=== PATIENT | female | born 1940 | race Asian ===

== ENCOUNTER 2017-12-25 06:39 | Inpatient (IN) | payer MEDICARE, MEDICAID ==
[~2017-12-25] VITALS: Ht 162.6 cm; Wt 42.2 kg
[2017-12-25 06:39] VITALS: BP 145/80
[2017-12-25] MEDS ORDERED: Bacitracin Oint UD TOPIC ONE (06:45)
[2017-12-25] MEDS ORDERED: Lidocaine 1% 10mg/ml/Epi 0.005mg/ml 30ml vial INJ ONE (06:45)
[2017-12-25] MEDS ORDERED: Sodium Chloride 500ML 550 ML IV SCH (06:45)
[2017-12-25] MEDS ORDERED: Tetanus/Diptheria/Pertussis Vaccine 0.5ml Syr IM ONE (06:45)
[2017-12-25] MEDS ORDERED: Acetaminophen 500mg (ES) tab PO ONE (06:45)
--- NOTE | 2017-12-25 07:06 | Emergency Room Report ---
History of Present Illness General Chief Complaint: Multiple Trauma/Fall Source: Patient, Family Member, EMS Present Illness HPI Patient fell this morning. It's uncertain whether she had a syncopal episode as there is a language barrier. She has a laceration over the right eyebrow. It's unknown what medications she is on at this time. A collar runner will be obtained. Through RN collar runner the reports the patient's had a year of increasing weakness. This morning she was trying to move a stand going to the bathroom and because of the weakness fell. She remembers falling. She's had some chronic bowel issue. It's undiagnosed. They deny vomiting or diarrhea. The patient's treated for hypertension and hypercholesterolemia. No apparent diabetes. Unknown when last tetanus shot was. Allergies: Coded Allergies: No Known Allergies (Unverified , 12/25/17) Patient History Past Medical History: see triage record Social History: Denies: smoking, alcohol use, drug use Social History Narrative Last Menstrual Period: n/a Reviewed Nursing Documentation: PMH: Agreed; PSxH: Agreed Nursing Documentation-PMH Past Medical History: No History, Except For Hx Hypertension: Yes Review of Systems All Other Systems: negative except mentioned in HPI Physical Exam Vital Signs Date Time Temp Pulse Resp B/P (MAP) Pulse Ox O2 Delivery O2 Flow Rate FiO2 12/25/17 06:34 97.7 73 18 145/80 98 Room Air Sp02 EP Interpretation: reviewed, normal General Appearance: alert, thin, other - eyes closed, Chronically Ill Head: normocephalic Eyes: right eye other - SC ecchymoses, irregular eliptical pupils bilat ENT: moist mucus membranes Neck: supple, no bony tend Respiratory: lungs clear, normal breath sounds Cardiovascular #1: regular rate, rhythm Cardiovascular #2: 2+ radial (R) Gastrointestinal: normal inspection, normal bowel sounds, non tender, no mass, non-distended Musculoskeletal: back normal Neurologic: alert, DTRs symmetric, sensory intact, speech normal, no Babinski, motor weakness - diffuse - foot flexors 5/5, moves UE without difficulty, oriented - X2 Psychiatric: depressed affect Skin: warm/dry, laceration - R eyebrow Procedures Laceration/Wound Repair Laceration/Wound Repair : Consent: Verbal Wound Location: face - eye lid Wound's Depth, Shape: superficial Wound Length (cm): 1 Wound Explored: clean Betadine Prep?: Yes Anesthesia: Lidocaine w/ Epi Wound Debrided: none Wound Repaired With: sutures Suture Size/Type: 6:0, proline Layer Closure?: No Sterile Dressing Applied?: Yes Patient Tolerated: Well Complications: None Medical Decision Making Diagnostic Impression: Primary Impression: NSTEMI (non-ST elevated myocardial infarction) Additional Impression: Head trauma Qualified Codes: S09.90XA - Unspecified injury of head, initial encounter ER Course Patient with fall with laceration above the right eyebrow. Differential includes syncope, bleed, contusion, laceration amongst others. The patient will be evaluated with EKG, CT the head and labs. She'll be given tetanus vaccination and requires suture repair. In addition she will be given Tylenol. She has generalized weakness which needs to be evaluated. EKG with sinus rhythm left atrial enlargement normal intervals and nonspecific ST-T wave changes. Lab called with + troponin. Aspirin given. WBC with low WBC. CMP with slightly low potassium. Laceration sutured. Tolerated well. Discussed findings and need for admission. Admit telemetry Dr. Paredes. Labs Test 12/25/17 07:15 12/25/17 10:40 12/25/17 15:35 12/25/17 15:55 White Blood Count 3.9 K/UL (4.8-10.8) Red Blood Count 4.02 M/UL (4.20-5.40) Hemoglobin 13.1 G/DL (12.0-16.0) Hematocrit 37.9 % (37.0-47.0) Mean Corpuscular Volume 94 FL (80-99) Mean Corpuscular Hemoglobin 32.5 PG (27.0-31.0) Mean Corpuscular Hemoglobin Concent 34.6 G/DL (32.0-36.0) Red Cell Distribution Width 11.4 % (11.6-14.8) Platelet Count 184 K/UL (150-450) Mean Platelet Volume 7.9 FL (6.5-10.1) Neutrophils (%) (Auto) 46.3 % (45.0-75.0) Lymphocytes (%) (Auto) 41.9 % (20.0-45.0) Monocytes (%) (Auto) 7.8 % (1.0-10.0) Eosinophils (%) (Auto) 2.9 % (0.0-3.0) Basophils (%) (Auto) 1.1 % (0.0-2.0) Prothrombin Time 9.9 SEC (9.30-11.50) Prothromb Time International Ratio 0.9 (0.9-1.1) Activated Partial Thromboplast Time 26 SEC (23-33) Sodium Level 144 MMOL/L (136-145) Potassium Level 3.2 MMOL/L (3.5-5.1) Chloride Level 108 MMOL/L (98-107) Carbon Dioxide Level 31 MMOL/L (21-32) Anion Gap 5 mmol/L (5-15) Blood Urea Nitrogen 13 mg/dL (7-18) Creatinine 0.6 MG/DL (0.55-1.30) Estimat Glomerular Filtration Rate mL/min (>60) Glucose Level 96 MG/DL (74-106) Calcium Level 8.9 MG/DL (8.5-10.1) Total Bilirubin 0.4 MG/DL (0.2-1.0) Aspartate Amino Transf (AST/SGOT) 22 U/L (15-37) Alanine Aminotransferase (ALT/SGPT) 23 U/L (12-78) Alkaline Phosphatase 81 U/L (46-116) Troponin I 0.127 ng/mL (0.000-0.056) 0.151 ng/mL (0.000-0.056) 0.150 ng/mL (0.000-0.056) Total Protein 7.5 G/DL (6.4-8.2) Albumin 3.7 G/DL (3.4-5.0) Globulin 3.8 g/dL Albumin/Globulin Ratio 1.0 (1.0-2.7) HIV (1&2) Antibody Rapid Negative (NEGATIVE) Hepatitis A IgM Antibody Negative (Negative) Hepatitis B Surface Antigen Negative (Negative) Hepatitis B Core IgM Antibody Negative (Negative) Hepatitis C Antibody <0.1 s/co ratio Carcinoembryonic Antigen 4.1 ng/mL (0.0-4.7) Test 12/25/17 19:30 12/25/17 21:46 12/25/17 22:00 12/26/17 04:46 Urine Color Pale yellow Urine Appearance Clear Urine pH 8 (4.5-8.0) Urine Specific [place] 1.010 (1.005-1.035) Urine Protein Negative (NEGATIVE) Urine Glucose (UA) Negative (NEGATIVE) Urine Ketones Negative (NEGATIVE) Urine Blood Negative (NEGATIVE) Urine Nitrite Negative (NEGATIVE) Urine Bilirubin Negative (NEGATIVE) Urine Urobilinogen Normal MG/DL (0.0-1.0) Urine Leukocyte Esterase Negative (NEGATIVE) Urine RBC 0-2 /HPF (0 - 2) Urine WBC 0-2 /HPF (0 - 2) Urine Squamous Epithelial Cells Occasional /LPF Urine Bacteria Few /HPF (NONE) Troponin I 0.142 ng/mL (0.000-0.056) 0.144 ng/mL (0.000-0.056) Erythrocyte Sedimentation Rate 20 MM/HR (0-30) Hemoglobin A1c > 16.0 % (4.3-6.0) Vitamin B12 Level 971 PG/ML (193-986) Folate 34.4 NG/ML (8.6-58.9) Thyroid Stimulating Hormone (TSH) 1.497 uiU/mL (0.358-3.740) White Blood Count 5.5 K/UL (4.8-10.8) Red Blood Count 4.07 M/UL (4.20-5.40) Hemoglobin 12.8 G/DL (12.0-16.0) Hematocrit 38.2 % (37.0-47.0) Mean Corpuscular Volume 94 FL (80-99) Mean Corpuscular Hemoglobin 31.4 PG (27.0-31.0) Mean Corpuscular Hemoglobin Concent 33.5 G/DL (32.0-36.0) Red Cell Distribution Width 11.1 % (11.6-14.8) Platelet Count 193 K/UL (150-450) Mean Platelet Volume 7.3 FL (6.5-10.1) Neutrophils (%) (Auto) 59.7 % (45.0-75.0) Lymphocytes (%) (Auto) 30.4 % (20.0-45.0) Monocytes (%) (Auto) 7.1 % (1.0-10.0) Eosinophils (%) (Auto) 1.8 % (0.0-3.0) Basophils (%) (Auto) 1.1 % (0.0-2.0) Sodium Level 144 MMOL/L (136-145) Potassium Level 3.8 MMOL/L (3.5-5.1) Chloride Level 110 MMOL/L (98-107) Carbon Dioxide Level 29 MMOL/L (21-32) Anion Gap 5 mmol/L (5-15) Blood Urea Nitrogen 18 mg/dL (7-18) Creatinine 0.6 MG/DL (0.55-1.30) Estimat Glomerular Filtration Rate mL/min (>60) Glucose Level 87 MG/DL (74-106) Calcium Level 9.1 MG/DL (8.5-10.1) Magnesium Level 2.2 MG/DL (1.8-2.4) EKG Diagnostic Results Rate: normal Rhythm: NSR ST Segments: no acute changes - Left atrial enlargement Rhythm Strip Diag. Results EP Interpretation: yes Rhythm: NSR, no PVC's, no ectopy CT/MRI/US Diagnostic Results CT/MRI/US Diagnostic Results : Imaging Test Ordered: head Impression atrophy Status: improved Disposition: ADMITTED INPATIENT Condition: Serious Owen Burgess MD Dec 25, 2017 07:06
[2017-12-25 07:44] LABS: BASOPHILS % (AUTO) 1.1 % (0.0-2.0); EOSINOPHILS % (AUTO) 2.9 % (0.0-3.0); HEMATOCRIT 37.9 % (37.0-47.0); HEMOGLOBIN 13.1 G/DL (12.0-16.0); LYMPHOCYTES % (AUTO) 41.9 % (20.0-45.0); MEAN CORPUSCULAR VOLUME 94 FL (80-99); MONOCYTES % (AUTO) 7.8 % (1.0-10.0); NEUTROPHILS % (AUTO) 46.3 % (45.0-75.0); PLATELET COUNT 184 K/UL (150-450); RED BLOOD COUNT 4.02 M/UL (4.20-5.40); RED CELL DISTRIBUTION WIDTH 11.4 % (11.6-14.8); WHITE BLOOD COUNT 3.9 K/UL (4.8-10.8)
[2017-12-25 07:48] LABS: ANION GAP 5 mmol/L (5-15); BLOOD UREA NITROGEN 13 mg/dL (7-18); CALCIUM 8.9 MG/DL (8.5-10.1); CARBON DIOXIDE 31 MMOL/L (21-32); CHLORIDE 108 MMOL/L (98-107); CREATININE 0.6 MG/DL (0.55-1.30); POTASSIUM 3.2 MMOL/L (3.5-5.1); SODIUM 144 MMOL/L (136-145)
[2017-12-25 07:50] LABS: INR 0.9 (0.9-1.1)
[2017-12-25 07:53] LABS: ALANINE AMINOTRANSFERASE 23 U/L (12-78); ALBUMIN 3.7 G/DL (3.4-5.0); ALKALINE PHOSPHATASE 81 U/L (46-116); ASPARTATE AMINO TRANSFERASE 22 U/L (15-37); BILIRUBIN,TOTAL 0.4 MG/DL (0.2-1.0)
[2017-12-25 08:34] VITALS: BP 148/86
--- NOTE | 2017-12-25 08:45 | Diagnostic Imaging Report ---
Indication: Headache and trauma Technique: Contiguous 5 mm thick transaxial imaging of the head obtained in a Siemens Sensation [address] scanner. Soft tissue and bone windows generated. Automatic Exposure Control was utilized. Total Dose length Product (DLP): 1354.[address] Dose Index Volume (CTDIvol): 70.38 mGy Comparison: none Findings: There is moderate prominence of the ventricles, basal cisterns, and cerebral sulci consistent with atrophy. Moderate, nonspecific, white matter hypoattenuation is noted throughout the brain consistent with chronic small vessel disease. There is no midline shift, edema, acute hemorrhage, mass effect, or abnormal extra-axial fluid collections. Bones and extra osseous soft tissues are unremarkable. Impression: No acute intracranial bleed, mass effect or edema. Moderate atrophy of the brain. Evidence of chronic small vessel disease involving white matter tracts. The CT scanner at [facility] is accredited by the [employer] and the scans are performed using dose optimization techniques as appropriate to a performed exam including Automatic Exposure control.
[2017-12-25] MEDS ORDERED: AMLODIPINE-BEN1 EAC4 ORAL (09:07)
[2017-12-25] MEDS ORDERED: SIMVASTATIN20 MG ORAL (09:07)
[2017-12-25] MEDS ORDERED: MEGESTROL ACETA40 MG PO (09:07)
[2017-12-25] MEDS ORDERED: PANTOPRAZOLE SO40 MG ORAL (09:07)
[2017-12-25] MEDS ORDERED: XANAX0.5 MG ORAL (09:07)
[2017-12-25] MEDS ORDERED: Morphine Sulfate 2mg/ml Inj IVP PRN (10:15)
[2017-12-25] MEDS ORDERED: Acetaminophen 650 MG SUPP RECTAL PRN ×2 (10:15)
--- NOTE | 2017-12-25 10:27 | History and Physical ---
History of Present Illness General Date patient seen: Dec 25, 2017 Time patient seen: 09:30 Reason for Hospitalization: Multiple Trauma/Fall Present Illness HPI History obtained with stations superintendent through patient, EMR and patient's at bedside. 77 yo Yoruba speaking PMH of CVA (30 years ago no residual deficits) presents for a fall this am as she got up to use the rest room. Patient admits that she does not usually have much apatite and does not eat adequately because she has a "digestion problem". She states that she feels weak but denies any particular inciting events and states she is able to ambulate on her her own without use of a walker. Patient admits that she felt lightheaded prior to the fall. She denies any chest pain, dizziness, or neurological deficits prior to the fall. Patient currently denies any chest pain, nausea, vomiting, dizziness, light headedness, abd pain, fevers, chills, dysuria. Allergies: Coded Allergies: No Known Allergies (Unverified , 12/25/17) Medication History Scheduled Alprazolam* (Xanax*), 0.5 MG ORAL PRN, (Reported) Amlodipine Besylate/Benazepril 5-20 Mg* (Amlodipine-Benazepril 5-20 Mg*), 1 CAP ORAL DAILY, (Reported) Megestrol Acetate (Megestrol Acetate), 40 MG PO BID, (Reported) Pantoprazole* (Pantoprazole*), 40 MG ORAL DAILY, (Reported) Simvastatin (Zocor), 20 MG ORAL BEDTIME, (Reported) Patient History History Provided By: Patient, Family Member, EMS Healthcare decision maker Resuscitation status Advanced Directive on File Past Medical/Surgical History Past Medical/Surgical History: (1) CVA (cerebral vascular accident) (2) H/O: hysterectomy Review of Systems All Other Systems: negative except mentioned in HPI ROS Narrative aside from HPI all other systems are negative including more than 12 systems Physical Exam General Appearance: WD/WN, no apparent distress, thin, other - patient has laceration over the right eye and very thin Lines, tubes and drains: peripheral - right arm HEENT: anicteric, other - left pupil is 3 mm, round and reactive, right pupil is sluggish, right eye is swollen with laceration over the right eyebrow, no acitve bleeding Neck: non-tender, normal alignment, supple, normal inspection Respiratory/Chest: chest wall non-tender, lungs clear, normal breath sounds, no respiratory distress, no accessory muscle use Cardiovascular/Chest: normal peripheral pulses, normal rate, regular rhythm, regularly irregular, no gallop/murmur, no JVD Abdomen: normal bowel sounds, non tender, soft, no organomegaly, no mass Extremities: normal range of motion, non-tender, normal inspection, no calf tenderness, no edema, no cyanosis, other - 4/5 muscle strength in UE BL and LE BL Skin Exam: normal pigmentation, warm/dry, cyanotic 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, alert, oriented x 3, responsive, normal mood/affect, no Babinski, no pronator, motor weakness - generally weak with 4/5 muscle strength UE and LE BL, DTR's are 2+ BL brachioradialis and dtr's, sensation is grossly intact, no clonus, no tremors, CHERRY smooth Musculoskeletal: atrophy Last 24 Hour Vital Signs Date Time Temp Pulse Resp B/P (MAP) Pulse Ox O2 Delivery O2 Flow Rate FiO2 12/25/17 08:34 98.0 65 16 148/86 100 Room Air 12/25/17 06:44 73 18 Room Air 12/25/17 06:39 97.7 65 18 145/80 98 Room Air 12/25/17 06:34 97.7 73 18 145/80 98 Room Air Laboratory Tests Test 12/25/17 07:15 White Blood Count 3.9 K/UL (4.8-10.8) L Red Blood Count 4.02 M/UL (4.20-5.40) L Hemoglobin 13.1 G/DL (12.0-16.0) Hematocrit 37.9 % (37.0-47.0) Mean Corpuscular Volume 94 FL (80-99) Mean Corpuscular Hemoglobin 32.5 PG (27.0-31.0) H Mean Corpuscular Hemoglobin Concent 34.6 G/DL (32.0-36.0) Red Cell Distribution Width 11.4 % (11.6-14.8) L Platelet Count 184 K/UL (150-450) Mean Platelet Volume 7.9 FL (6.5-10.1) Neutrophils (%) (Auto) 46.3 % (45.0-75.0) Lymphocytes (%) (Auto) 41.9 % (20.0-45.0) Monocytes (%) (Auto) 7.8 % (1.0-10.0) Eosinophils (%) (Auto) 2.9 % (0.0-3.0) Basophils (%) (Auto) 1.1 % (0.0-2.0) Prothrombin Time 9.9 SEC (9.30-11.50) Prothromb Time International Ratio 0.9 (0.9-1.1) Activated Partial Thromboplast Time 26 SEC (23-33) Sodium Level 144 MMOL/L (136-145) Potassium Level 3.2 MMOL/L (3.5-5.1) L Chloride Level 108 MMOL/L (98-107) H Carbon Dioxide Level 31 MMOL/L (21-32) Anion Gap 5 mmol/L (5-15) Blood Urea Nitrogen 13 mg/dL (7-18) Creatinine 0.6 MG/DL (0.55-1.30) Estimat Glomerular Filtration Rate mL/min (>60) Glucose Level 96 MG/DL (74-106) Calcium Level 8.9 MG/DL (8.5-10.1) Total Bilirubin 0.4 MG/DL (0.2-1.0) Aspartate Amino Transf (AST/SGOT) 22 U/L (15-37) Alanine Aminotransferase (ALT/SGPT) 23 U/L (12-78) Alkaline Phosphatase 81 U/L (46-116) Troponin I 0.127 ng/mL (0.000-0.056) Total Protein 7.5 G/DL (6.4-8.2) Albumin 3.7 G/DL (3.4-5.0) Globulin 3.8 g/dL Albumin/Globulin Ratio 1.0 (1.0-2.7) Height (Feet): 5 Height (Inches): 5.00 Weight (Pounds): 110 Medications Current Medications Medications (Trade) Dose Ordered Sig/Jie Route PRN Reason Start Time Stop Time Status Last Admin Dose Admin Acetaminophen (Tylenol) 650 mg Q4H PRN RECTAL Mild Pain (Pain Scale 1-3) 12/25/17 10:15 01/24/18 10:14 UNV Acetaminophen (Tylenol) 650 mg Q4H PRN RECTAL fever 12/25/17 10:15 01/24/18 10:14 UNV Aspirin (ASA) 81 mg DAILY ORAL 12/26/17 09:00 01/25/18 08:59 UNV Atorvastatin Calcium (Lipitor) 40 mg BEDTIME ORAL 12/25/17 21:00 01/24/18 20:59 UNV Dextrose (Dextrose 50%) 25 ml Q30M PRN IV Hypoglycemia 12/25/17 10:15 01/24/18 10:14 UNV Dextrose (Dextrose 50%) 50 ml Q30M PRN IV Hypoglycemia 12/25/17 10:15 01/24/18 10:14 UNV Docusate Sodium (Colace) 200 mg EVERY 12 HOURS ORAL 12/25/17 10:15 01/24/18 10:14 UNV Heparin Sodium (Porcine) (Heparin 5000 units/ml) 5,000 units EVERY 12 HOURS SUBQ 12/25/17 21:00 01/24/18 20:59 UNV Lisinopril (Zestril) 2.5 mg DAILY ORAL 12/25/17 10:15 01/24/18 10:14 UNV Metoprolol Tartrate (Lopressor) 25 mg EVERY 12 HOURS ORAL 12/25/17 21:00 01/24/18 20:59 UNV Morphine Sulfate (Morphine Sulfate) 2 mg Q6H PRN IVP Moderate Pain (Pain Scale 4-6) 12/25/17 10:15 01/01/18 10:14 UNV Ondansetron HCl (Zofran) 4 mg Q6H PRN IVP Nausea & Vomiting 12/25/17 10:15 01/24/18 10:14 UNV Pantoprazole (Protonix) 40 mg DAILY ORAL 12/26/17 09:00 01/25/18 08:59 UNV Sodium Chloride 550 ml @ 150 mls/hr Q3H40M IV 12/25/17 06:45 01/24/18 06:44 12/25/17 07:26 Assessment/Plan Problem List: (1) Fall ICD Codes: W19.XXXA - Unspecified fall, initial encounter SNOMED: 3971228, 133986958 (2) NSTEMI (non-ST elevated myocardial infarction) ICD Codes: I21.4 - Non-ST elevation (NSTEMI) myocardial infarction SNOMED: 743317747 (3) Head trauma ICD Codes: S09.90XA - Unspecified injury of head, initial encounter SNOMED: 88109078 (4) Malnutrition ICD Codes: E46 - Unspecified protein-calorie malnutrition SNOMED: 48379147 (5) Hypoalbuminemia ICD Codes: E88.09 - Other disorders of plasma-protein metabolism, not elsewhere classified SNOMED: 216974439 Assessment/Plan Mechanical Fall, r/o arrhythmia/heart block and acs - EKG WNL, no ST segment changes - fall precautions - admit to tele under obs - CT head negative - contibnue troponins and EKG [id number] - card and neuro consulted - echo Elevated troponin, r/o NSTEMI -EKG WNL - continue to monitor on telel - EKG and troponins q6h - cardiology consult - BB, kj, asa, statin Head Trauma - wound care Malnutrition and Hypoalbuminemia and weakness - consult nutrition - ensure TID - soft diet for dentures - PT OT Code Status - FULL CODE DVT proph - heparin, will monitor eye laceration closely GI prophylaxis - protonix H/O CVA H/O hysterectomy with benign tumor Dispo - home with vs SNF pending PT Addie Galeano DO Dec 25, 2017 10:27
--- NOTE | 2017-12-25 11:28 | Consultation ---
History of Present Illness General Chief Complaint: Multiple Trauma/Fall Present Illness HPI 77-year-old Japanese lady with history of hypertension, hyperlipidemia, and history of prior stroke with no significant residual, got up from restroom and she had a fall. the pt has been depressed and withdrawn for the past year. per pts the pts children are all adults and work. the pt has been feeling lonely not eating well nor sleeping well per pts . the pt admitted that she has been depressed but was min verbal. no si. Allergies: Coded Allergies: No Known Allergies (Unverified , 12/25/17) Medication History Scheduled Alprazolam* (Xanax*), 0.5 MG ORAL PRN, (Reported) Amlodipine Besylate/Benazepril 5-20 Mg* (Amlodipine-Benazepril 5-20 Mg*), 1 CAP ORAL DAILY, (Reported) Megestrol Acetate (Megestrol Acetate), 40 MG PO BID, (Reported) Pantoprazole* (Pantoprazole*), 40 MG ORAL DAILY, (Reported) Simvastatin (Zocor), 20 MG ORAL BEDTIME, (Reported) Patient History Limited by: medical condition History Provided By: Patient, Medical Record, PMD Healthcare decision maker Resuscitation status Advanced Directive on File Past Medical/Surgical History Past Medical/Surgical History: (1) Head trauma (2) NSTEMI (non-ST elevated myocardial infarction) (3) CVA (cerebral vascular accident) (4) Malnutrition (5) Hypoalbuminemia (6) Fall Review of Systems Psychiatric: Reports: anxiety, depressed feelings, emotional problems Physical Exam General Appearance: no apparent distress, alert, cachetic Neurologic: oriented x 3, responsive, depressed affect Last 24 Hour Vital Signs Date Time Temp Pulse Resp B/P (MAP) Pulse Ox O2 Delivery O2 Flow Rate FiO2 12/25/17 10:00 66 12/25/17 08:34 98.0 65 16 148/86 100 Room Air 12/25/17 06:44 73 18 Room Air 12/25/17 06:39 97.7 65 18 145/80 98 Room Air 12/25/17 06:34 97.7 73 18 145/80 98 Room Air Laboratory Tests Test 12/25/17 07:15 12/25/17 10:40 White Blood Count 3.9 K/UL (4.8-10.8) L Red Blood Count 4.02 M/UL (4.20-5.40) L Hemoglobin 13.1 G/DL (12.0-16.0) Hematocrit 37.9 % (37.0-47.0) Mean Corpuscular Volume 94 FL (80-99) Mean Corpuscular Hemoglobin 32.5 PG (27.0-31.0) H Mean Corpuscular Hemoglobin Concent 34.6 G/DL (32.0-36.0) Red Cell Distribution Width 11.4 % (11.6-14.8) L Platelet Count 184 K/UL (150-450) Mean Platelet Volume 7.9 FL (6.5-10.1) Neutrophils (%) (Auto) 46.3 % (45.0-75.0) Lymphocytes (%) (Auto) 41.9 % (20.0-45.0) Monocytes (%) (Auto) 7.8 % (1.0-10.0) Eosinophils (%) (Auto) 2.9 % (0.0-3.0) Basophils (%) (Auto) 1.1 % (0.0-2.0) Prothrombin Time 9.9 SEC (9.30-11.50) Prothromb Time International Ratio 0.9 (0.9-1.1) Activated Partial Thromboplast Time 26 SEC (23-33) Sodium Level 144 MMOL/L (136-145) Potassium Level 3.2 MMOL/L (3.5-5.1) L Chloride Level 108 MMOL/L (98-107) H Carbon Dioxide Level 31 MMOL/L (21-32) Anion Gap 5 mmol/L (5-15) Blood Urea Nitrogen 13 mg/dL (7-18) Creatinine 0.6 MG/DL (0.55-1.30) Estimat Glomerular Filtration Rate mL/min (>60) Glucose Level 96 MG/DL (74-106) Calcium Level 8.9 MG/DL (8.5-10.1) Total Bilirubin 0.4 MG/DL (0.2-1.0) Aspartate Amino Transf (AST/SGOT) 22 U/L (15-37) Alanine Aminotransferase (ALT/SGPT) 23 U/L (12-78) Alkaline Phosphatase 81 U/L (46-116) Troponin I 0.127 ng/mL (0.000-0.056) 0.151 ng/mL (0.000-0.056) Total Protein 7.5 G/DL (6.4-8.2) Albumin 3.7 G/DL (3.4-5.0) Globulin 3.8 g/dL Albumin/Globulin Ratio 1.0 (1.0-2.7) Height (Feet): 5 Height (Inches): 5.00 Weight (Pounds): 110 Medications Current Medications Medications (Trade) Dose Ordered Sig/Jie Route PRN Reason Start Time Stop Time Status Last Admin Dose Admin Acetaminophen (Tylenol) 650 mg Q4H PRN RECTAL Mild Pain (Pain Scale 1-3) 12/25/17 10:15 01/24/18 10:14 Acetaminophen (Tylenol) 650 mg Q4H PRN RECTAL fever 12/25/17 10:15 01/24/18 10:14 Aspirin (ASA) 81 mg DAILY ORAL 12/26/17 09:00 01/25/18 08:59 Atorvastatin Calcium (Lipitor) 40 mg BEDTIME ORAL 12/25/17 21:00 01/24/18 20:59 Dextrose (Dextrose 50%) 25 ml Q30M PRN IV Hypoglycemia 12/25/17 10:15 01/24/18 10:14 Dextrose (Dextrose 50%) 50 ml Q30M PRN IV Hypoglycemia 12/25/17 10:15 01/24/18 10:14 Docusate Sodium (Colace) 200 mg EVERY 12 HOURS ORAL 12/25/17 10:15 01/24/18 10:14 Heparin Sodium (Porcine) (Heparin 5000 units/ml) 5,000 units EVERY 12 HOURS SUBQ 12/25/17 21:00 01/24/18 20:59 Lisinopril (Zestril) 2.5 mg DAILY ORAL 12/25/17 10:15 01/24/18 10:14 Metoprolol Tartrate (Lopressor) 25 mg EVERY 12 HOURS ORAL 12/25/17 21:00 01/24/18 20:59 Morphine Sulfate (Morphine Sulfate) 2 mg Q6H PRN IVP Moderate Pain (Pain Scale 4-6) 12/25/17 10:15 01/01/18 10:14 Ondansetron HCl (Zofran) 4 mg Q6H PRN IVP Nausea & Vomiting 12/25/17 10:15 01/24/18 10:14 Pantoprazole (Protonix) 40 mg DAILY ORAL 12/26/17 09:00 01/25/18 08:59 Sodium Chloride 550 ml @ 150 mls/hr Q3H40M IV 12/25/17 06:45 01/24/18 06:44 12/25/17 07:26 Assessment/Plan Problem List: (1) Major depressive disorder ICD Codes: F32.9 - Major depressive disorder, single episode, unspecified SNOMED: 546721679 (2) Anxiety ICD Codes: F41.9 - Anxiety disorder, unspecified SNOMED: 67556294 Status: stable Assessment/Plan remeron 7.5 mg qhs lexapro 10mg qam provided ro/st the was given the script Mariana Peng MD Dec 25, 2017 11:28
--- NOTE | 2017-12-25 11:51 | Cardiac Electrophysiology PN ---
Subjective Subjective [id number] Objective Last 24 Hour Vital Signs Date Time Temp Pulse Resp B/P (MAP) Pulse Ox O2 Delivery O2 Flow Rate FiO2 12/25/17 10:00 66 12/25/17 08:34 98.0 65 16 148/86 100 Room Air 12/25/17 06:44 73 18 Room Air 12/25/17 06:39 97.7 65 18 145/80 98 Room Air 12/25/17 06:34 97.7 73 18 145/80 98 Room Air Laboratory Tests Test 12/25/17 07:15 12/25/17 10:40 White Blood Count 3.9 K/UL (4.8-10.8) L Red Blood Count 4.02 M/UL (4.20-5.40) L Hemoglobin 13.1 G/DL (12.0-16.0) Hematocrit 37.9 % (37.0-47.0) Mean Corpuscular Volume 94 FL (80-99) Mean Corpuscular Hemoglobin 32.5 PG (27.0-31.0) H Mean Corpuscular Hemoglobin Concent 34.6 G/DL (32.0-36.0) Red Cell Distribution Width 11.4 % (11.6-14.8) L Platelet Count 184 K/UL (150-450) Mean Platelet Volume 7.9 FL (6.5-10.1) Neutrophils (%) (Auto) 46.3 % (45.0-75.0) Lymphocytes (%) (Auto) 41.9 % (20.0-45.0) Monocytes (%) (Auto) 7.8 % (1.0-10.0) Eosinophils (%) (Auto) 2.9 % (0.0-3.0) Basophils (%) (Auto) 1.1 % (0.0-2.0) Prothrombin Time 9.9 SEC (9.30-11.50) Prothromb Time International Ratio 0.9 (0.9-1.1) Activated Partial Thromboplast Time 26 SEC (23-33) Sodium Level 144 MMOL/L (136-145) Potassium Level 3.2 MMOL/L (3.5-5.1) L Chloride Level 108 MMOL/L (98-107) H Carbon Dioxide Level 31 MMOL/L (21-32) Anion Gap 5 mmol/L (5-15) Blood Urea Nitrogen 13 mg/dL (7-18) Creatinine 0.6 MG/DL (0.55-1.30) Estimat Glomerular Filtration Rate mL/min (>60) Glucose Level 96 MG/DL (74-106) Calcium Level 8.9 MG/DL (8.5-10.1) Total Bilirubin 0.4 MG/DL (0.2-1.0) Aspartate Amino Transf (AST/SGOT) 22 U/L (15-37) Alanine Aminotransferase (ALT/SGPT) 23 U/L (12-78) Alkaline Phosphatase 81 U/L (46-116) Troponin I 0.127 ng/mL (0.000-0.056) 0.151 ng/mL (0.000-0.056) Total Protein 7.5 G/DL (6.4-8.2) Albumin 3.7 G/DL (3.4-5.0) Globulin 3.8 g/dL Albumin/Globulin Ratio 1.0 (1.0-2.7) Fady Ramsey MD Dec 25, 2017 11:51
[2017-12-25] MEDS: Docusate 100mg cap ORAL SCH ×2 (11:53→20:10)
[2017-12-25] MEDS: Lisinopril 2.5mg tab ORAL SCH (11:53)
[2017-12-25 12:00] VITALS: BP 143/81
--- NOTE | 2017-12-25 12:03 | Consultation ---
Consult Note Consult Note Hematology Consult Note DOS: 12/25/17 REQ MD: Vignesh Godfrey RFC: FTT and Leukopenia HPI 77 yo Lithuanian speaking PMH of CVA (30 years ago no residual deficits) presents for a fall this am as she got up to use the rest room. Patient admits that she does not usually have much apatite and does not eat adequately because she has a "digestion problem". She states that she feels weak but denies any particular inciting events and states she is able to ambulate on her her own without use of a walker. Patient admits that she felt lightheaded prior to the fall. She denies any chest pain, dizziness, or neurological deficits prior to the fall. Patient currently denies any chest pain, nausea, vomiting, dizziness, light headedness, abd pain, fevers, chills, dysuria. She was noted to have ftt as well as leukopenia and heme was consulted. Allergies: No Known Allergies (Unverified , 12/25/17) Medication History Scheduled Alprazolam* (Xanax*), 0.5 MG ORAL PRN, (Reported) Amlodipine Besylate/Benazepril 5-20 Mg* (Amlodipine-Benazepril 5-20 Mg*), 1 CAP ORAL DAILY, (Reported) Megestrol Acetate (Megestrol Acetate), 40 MG PO BID, (Reported) Pantoprazole* (Pantoprazole*), 40 MG ORAL DAILY, (Reported) Simvastatin (Zocor), 20 MG ORAL BEDTIME, (Reported) Patient History History Provided By: Patient, Family Member, EMS Healthcare decision maker Resuscitation status Advanced Directive on File Past Medical/Surgical History Past Medical/Surgical History: (1) CVA (cerebral vascular accident) (2) H/O: hysterectomy ROS Review of Systems All Other Systems: negative except mentioned in HPI aside from HPI all other systems are negative including more than 12 systems Physical Exam Physical Exam General Appearance: WD/WN, no apparent distress, thin, other - patient has laceration over the right eye and very thin Lines, tubes and drains: peripheral - right arm HEENT: anicteric, other - left pupil is 3 mm, round and reactive, right pupil is sluggish, right eye is swollen with laceration over the right eyebrow, Neck: non-tender Respiratory/Chest: chest wall non-tender, lungs clear, Cardiovascular/Chest: normal peripheral pulses, rrr Abdomen: normal bowel sounds, non tender, soft, no ogm, no mass Extremities: normal range of motion, non-tender, normal inspection, no calf tenderness, no edema, no cyanosis, other - 4/5 muscle strength in UE BL and LE BL Skin Exam: normal pigmentation, warm/dry, cyanotic 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, alert, oriented x 3, responsive, normal mood/affect, no Babinski, no pronator, motor weakness - generally weak Last 24 Hour Vital Signs Date Time Temp Pulse Resp B/P (MAP) Pulse Ox O2 Delivery O2 Flow Rate FiO2 12/25/17 08:34 98.0 65 16 148/86 100 Room Air 12/25/17 06:44 73 18 Room Air 12/25/17 06:39 97.7 65 18 145/80 98 Room Air 12/25/17 06:34 97.7 73 18 145/80 98 Room Air Laboratory Tests Test 12/25/17 07:15 White Blood Count 3.9 K/UL (4.8-10.8) L Red Blood Count 4.02 M/UL (4.20-5.40) L Hemoglobin 13.1 G/DL (12.0-16.0) Hematocrit 37.9 % (37.0-47.0) Mean Corpuscular Volume 94 FL (80-99) Mean Corpuscular Hemoglobin 32.5 PG (27.0-31.0) H Mean Corpuscular Hemoglobin Concent 34.6 G/DL (32.0-36.0) Red Cell Distribution Width 11.4 % (11.6-14.8) L Platelet Count 184 K/UL (150-450) Mean Platelet Volume 7.9 FL (6.5-10.1) Neutrophils (%) (Auto) 46.3 % (45.0-75.0) Lymphocytes (%) (Auto) 41.9 % (20.0-45.0) Monocytes (%) (Auto) 7.8 % (1.0-10.0) Eosinophils (%) (Auto) 2.9 % (0.0-3.0) Basophils (%) (Auto) 1.1 % (0.0-2.0) Prothrombin Time 9.9 SEC (9.30-11.50) Prothromb Time International Ratio 0.9 (0.9-1.1) Activated Partial Thromboplast Time 26 SEC (23-33) Sodium Level 144 MMOL/L (136-145) Potassium Level 3.2 MMOL/L (3.5-5.1) L Chloride Level 108 MMOL/L (98-107) H Carbon Dioxide Level 31 MMOL/L (21-32) Anion Gap 5 mmol/L (5-15) Blood Urea Nitrogen 13 mg/dL (7-18) Creatinine 0.6 MG/DL (0.55-1.30) Estimat Glomerular Filtration Rate mL/min (>60) Glucose Level 96 MG/DL (74-106) Calcium Level 8.9 MG/DL (8.5-10.1) Total Bilirubin 0.4 MG/DL (0.2-1.0) Aspartate Amino Transf (AST/SGOT) 22 U/L (15-37) Alanine Aminotransferase (ALT/SGPT) 23 U/L (12-78) Alkaline Phosphatase 81 U/L (46-116) Troponin I 0.127 ng/mL (0.000-0.056) Total Protein 7.5 G/DL (6.4-8.2) Albumin 3.7 G/DL (3.4-5.0) Globulin 3.8 g/dL Albumin/Globulin Ratio 1.0 (1.0-2.7) Height (Feet): 5 Height (Inches): 5.00 Weight (Pounds): 110 Medications Current Medications Medications (Trade) Dose Ordered Sig/Jie Route PRN Reason Start Time Stop Time Status Last Admin Dose Admin Acetaminophen (Tylenol) 650 mg Q4H PRN RECTAL Mild Pain (Pain Scale 1-3) 12/25/17 10:15 01/24/18 10:14 UNV Acetaminophen (Tylenol) 650 mg Q4H PRN RECTAL fever 12/25/17 10:15 01/24/18 10:14 UNV Aspirin (ASA) 81 mg DAILY ORAL 12/26/17 09:00 01/25/18 08:59 UNV Atorvastatin Calcium (Lipitor) 40 mg BEDTIME ORAL 12/25/17 21:00 01/24/18 20:59 UNV Dextrose (Dextrose 50%) 25 ml Q30M PRN IV Hypoglycemia 12/25/17 10:15 01/24/18 10:14 UNV Dextrose (Dextrose 50%) 50 ml Q30M PRN IV Hypoglycemia 12/25/17 10:15 01/24/18 10:14 UNV Docusate Sodium (Colace) 200 mg EVERY 12 HOURS ORAL 12/25/17 10:15 01/24/18 10:14 UNV Heparin Sodium (Porcine) (Heparin 5000 units/ml) 5,000 units EVERY 12 HOURS SUBQ 12/25/17 21:00 01/24/18 20:59 UNV Lisinopril (Zestril) 2.5 mg DAILY ORAL 12/25/17 10:15 01/24/18 10:14 UNV Metoprolol Tartrate (Lopressor) 25 mg EVERY 12 HOURS ORAL 12/25/17 21:00 01/24/18 20:59 UNV Morphine Sulfate (Morphine Sulfate) 2 mg Q6H PRN IVP Moderate Pain (Pain Scale 4-6) 12/25/17 10:15 01/01/18 10:14 UNV Ondansetron HCl (Zofran) 4 mg Q6H PRN IVP Nausea & Vomiting 12/25/17 10:15 01/24/18 10:14 UNV Pantoprazole (Protonix) 40 mg DAILY ORAL 12/26/17 09:00 01/25/18 08:59 UNV Sodium Chloride 550 ml @ 150 mls/hr Q3H40M IV 12/25/17 06:45 01/24/18 06:44 12/25/17 07:26 Assessment/Plan # Leukopenia -- cause unknown, working up at this time --> do not have patient's baseline --> obtain hep and hiv and us of the abdomen --> review peripheral smear --> no evidence of infection at this time/moment --> neupogen only if Anc < 1500 # Failure to thrive with weight loss and Malnutrition and Hypoalbuminemia and weakness --> consult nutrition --> ensure TID --> soft diet for dentures --> obtain cea # Mechanical Fall, r/o arrhythmia/heart block and acs --> EKG WNL, no ST segment changes, fall precautions --> CT head negative --> contibnue troponins and EKG periodically --> cards recs apprecaited # Elevated troponin, r/o NSTEMI --> nando cards recs # DVT proph --> heparin sq # H/O hysterectomy with benign tumor Greatly appreciate consultation! Alfonso Savage MD Dec 25, 2017 12:03
[2017-12-25 16:00] VITALS: BP 125/72
[2017-12-25 20:00] VITALS: BP 112/64
--- NOTE | 2017-12-25 20:00 | Consultation ---
DATE OF CONSULTATION: 12/25/2017 CARDIOLOGY CONSULTATION CONSULTING PHYSICIAN: Fady Ramsey M.D. REFERRING PHYSICIAN: Juan Carlos Godfrey M.D. REASON FOR CONSULTATION: Syncope, resulting in laceration of the right eyebrow as well as elevated troponin. HISTORY OF PRESENT ILLNESS: The patient is a 77-year-old Azeri lady with history of hypertension, hyperlipidemia, and history of prior stroke with no significant residual, got up from restroom and she had a fall. The patient is not sure whether she truly lost consciousness or not. The patient was seen in the emergency room and laceration of eyebrow was sutured. The patient subsequently was found to have elevated troponin. Cardiology consultation was obtained for further evaluation and management. REVIEW OF SYSTEMS: Negative other than what was mentioned in the history of present illness. PAST MEDICAL HISTORY: As mentioned above. MEDICATIONS: Include amlodipine, simvastatin, pantoprazole, Xanax, and benazepril. SOCIAL HISTORY: She lives at home. She does not smoke or drink alcohol. PHYSICAL EXAMINATION: VITAL SIGNS: Blood pressure 148/86, pulse 65, and respirations 16. She is afebrile. HEAD AND NECK: Showed no JVD. LUNGS: Clear. CARDIOVASCULAR: Shows regular S1 and S2 with no gallop or murmur. ABDOMEN: Soft and nontender. EXTREMITIES: No pitting edema. The laceration of the right eyebrow has been sutured. LABORATORY DATA: Her EKG, sinus rhythm with left atrial enlargement. White count of 3.9, hemoglobin 13, hematocrit 38, and platelet count of 184,000. Sodium 145, potassium 3.2, and BUN 13.2. Troponin 0.12 and 1.151. ASSESSMENT AND PLAN: 1. Elevated troponin. This could be due to [id number] myocardial infarction. EKG does not show any significant ST-T wave abnormalities. However, the patient does not have renal failure either. We will repeat EKG and get an echocardiogram for ejection fraction and wall motion abnormality. In the meantime, keep the patient on aspirin, metoprolol, and Lipitor. 2. Hypertension, on metoprolol 25 mg b.i.d. and lisinopril 2.5 mg daily. 3. Hyperlipidemia, on Lipitor. 4. Status post fall, right eye laceration, questionable syncope versus orthostatics. We will get an echocardiogram. orthostatic vital signs. Thank you very much, Dr. Godfrey, for allowing me to participate in the care of this patient. Please do not hesitate to contact me for any questions regarding my evaluation. Fady Ramsey M.D. DR: KALYN JOB#: [id number] CC:
[2017-12-25] MEDS: Heparin 5000 units/ml inj SUBQ SCH (20:11)
[2017-12-25] MEDS: Metoprolol 25mg tab ORAL SCH (20:14)
[2017-12-25 20:24] LABS: APPEARANCE,URINE CLEAR; BILIRUBIN, URINE NEGATIVE (NEGATIVE); COLOR,URINE PALE YELLOW; GLUCOSE, URINE (UA) NEGATIVE (NEGATIVE); KETONES,URINE NEGATIVE (NEGATIVE); LEUKOCYTE ESTERASE ,URINE NEGATIVE (NEGATIVE); NITRITE,URINE NEGATIVE (NEGATIVE); PH,URINE 8 (4.5-8.0); PROTEIN,URINE NEGATIVE (NEGATIVE); UROBILINOGEN,URINE NORMAL MG/DL (0.0-1.0)
[2017-12-25] MEDS ORDERED: Atorvastatin 20mg tab ORAL SCH (21:00)
--- NOTE | 2017-12-25 22:03 | Consultation ---
Consult Note Consult Note NEUROLOGY CONSULTATION: Full note dictated #[id number] 77 y/o, RH, KAF who has a PH of HTN, DL, CVD with a stroke 30 years ago with right sided weakness and language problems. She was functioning well until today when she felt dizzy and then fell. She lacerated her right upper lid and sustained a right periorbital hematoma. She was also thought to have had a NSTEMI. ON EXAM: Problems with orientation to year. M 3/3-0, 2/3-1,3 (2 tries) Trump and Obama only Problems with VSF and HCF. Right VII central - mild G 5/5 except for G 4+/5 in right FE, IP, TE DTRs R 1++/L 1+ -No ankles Plantars flexor Walked well with contact guard. IMPRESSION: Fall -etiology ? CHT with no intracranial path seen on CT. Right paresis - most probably old but cannot exclude new subcortical event. Cognitive dysfunction old vs new. REC: Agree with Rx. Carotid duplex MRI of brain to exclude acute intracranial path. W/U cognitive dysfunction Mobilize with PT. Hieu Sánchez M.D., M.S.P.HIEU EPPS Dec 25, 2017 22:03
[2017-12-26] VITALS (7 sets, daily range): BP systolic 109–142; BP diastolic 61–86
--- NOTE | 2017-12-26 01:15 | Consultation ---
DATE OF CONSULTATION: 12/25/2017 NEUROLOGY CONSULTATION CONSULTING PHYSICIAN: Armando Sánchez M.D. REQUESTING PHYSICIAN: Dr. Addie Medellin. HISTORY: Ms. Conrad Verde is a 77-year-old, right-handed, Serbian [place] lady who does have a past history of hypertension, dyslipidemia, cerebrovascular disease with stroke approximately 30 years ago associated with right-sided weakness and some language problems which improved over time. She was functioning relatively well until today when she felt dizzy and then fell. She was functioning well until today when she felt dizzy and then fell down. She lacerated her right upper lid and also sustained a right periorbital hematoma. She was brought into the [facility] emergency room where she was evaluated and she was also thought to have had a non ST elevation myocardial infarction. She has since been admitted. This consultation was requested to evaluate the patient from a neurological point of view for her closed head trauma. At this point in time, Ms. Verde feels relatively well. She denies any problems with memory or any weakness. PAST MEDICAL HISTORY: Significant for hypertension, dyslipidemia, cerebrovascular disease with stroke 30 years ago associated with right-sided weakness and language problems. FAMILY HISTORY: Nothing significant. PERSONAL HISTORY: Home: She lives at home with her . Work: She is retired. Habits: None. PRESENT MEDICATIONS: Aspirin 81 mg daily, Protonix, heparin for DVT prophylaxis, Lopressor, Lipitor, Remeron, Lexapro, Tylenol, morphine sulfate, Colace, Zofran, and lisinopril. PHYSICAL EXAMINATION: GENERAL: She is a well-developed, well-nourished, Serbian [place] lady in no acute distress. VITAL SIGNS: Pulse 66/minute, blood pressure 112/64 mmHg, respirations 16/minute, temperature 97.9 degrees Fahrenheit. HEAD: Normocephalic with right upper lid laceration that has been sutured and right periorbital ecchymosis. EENT: Examination benign except for right subconjunctival hemorrhage. NECK: No neck rigidity was observed. NEUROLOGIC EXAMINATION: MENTAL STATUS EXAMINATION: She was awake and alert. She was oriented to self, [facility], and December. She did not know the exact date or year. She was able to recall 3/3 words immediately, but could only remember 2/3 words in 1 minute and 3 minutes even on the second trial. She was able to remember presidents, Trump and Obama, but could not remember presidents prior to that. Her mathematical skills were impaired. Her visuospatial function was also impaired. SPEECH: She had no dysarthria. LANGUAGE: She had no aphasia in Serbian as per the Serbian japanese interpreter. CRANIAL NERVE EXAMINATION: II: The visual arnold were intact on confrontation testing. III, IV & : The external ocular movements were full and the pupils 3 mm in diameter, equal, round, regular, and reactive sluggishly to light. V: She had normal facial sensations, and the temporales, masseters, and pterygoids functioned normally. VII: She had a mild right seventh central facial paresis. VIII: She was able to hear and had no nystagmus. IX: The palate moved symmetrically on phonation. X: She had no hoarseness of voice. XI: The sternocleidomastoids and trapezii function normally. XII: The tongue was in the midline without any fasciculations or atrophy. MOTOR SYSTEM: The tone was normal in all four extremities. Examination of muscle mass revealed generalized muscle wasting. Examination of power revealed G 5/5 power except for G 4+/5 power in the right finger extensors, iliopsoas, and toe extensors. SENSORY EXAMINATION: She had intact sensations to pinprick, light touch, and graphesthesia. COORDINATION: She performed well on [id number]-[id number] and [id number]-np-[id number] testing. REFLEXES: 1+ +on the right and 1+ on the left at the biceps, triceps, brachioradialis, and knees, 0 at both ankles. The plantar responses were flexor bilaterally. STANCE: She stood up with support on both sides. GAIT: She walked with support on both sides. DIAGNOSTIC IMPRESSION: 1. Ms. Conrad Verde is a 77-year-old, right-handed, Serbian [place] lady, with a past history of hypertension, dyslipidemia, and cerebrovascular disease with a prior stroke who was functioning well until 12/25/17 when she felt dizzy and then fell. She lacerated the right upper lid and sustained a right periorbital hematoma. While she was being evaluated in the emergency room she was also thought to have had a non ST elevation myocardial infarction. She has since been admitted and denies any new neurological symptoms. 2. On neurological examination, at this time, she does have problems with orientation to the exact date and year, problems with recent and remote memory, visuospatial function, and higher cognitive function. A right VII central facial paresis, right hemiparesis involving both upper and lower extremities, slightly brisk reflexes on the right side compared to the left and she is able to walk with support on both sides. 3. A CT scan of the brain performed earlier today reveals atrophy and some deep white matter pathology but no acute pathology. 4. Laboratory data obtained thus far revealed a relatively normal CBC, relatively normal chemistry panel except for low potassium at 3.2, a minimally elevated chloride at 108, a benign urinalysis and an INR of 0.9. 5. The patient's history, neurological examination, laboratory data, and imaging studies are most compatible with a fall due to unknown reasons. She however as a result of the fall sustained closed head trauma with no intracranial pathology seen on the CT scan but with a right upper lid laceration and right periorbital ecchymosis. 6. She does have significant cognitive dysfunction and it is unclear if this is old or new. 7. She also has a definite right paresis with brisker reflexes on the right side which again is most probably old but one cannot rule out recent event in addition. RECOMMENDATIONS: 1. Agree with management thus far. 2. She should be worked up thoroughly for treatable causes of cognitive dysfunction with in addition to the laboratory tests already done, a B12 level, folate level, vitamin D, RPR, glycohemoglobin, Westergren sedimentation rate, and TSH. 3. An MRI scan of the brain should be performed to evaluate the patient for acute intracranial pathology. 4. Carotid duplex should be performed to evaluate the patient for hemodynamically significant carotid disease. 5. The patient should be mobilized with the help of physical therapy. Thank you for entrusting me with the care of Ms. Verde. I shall follow her with you. Armando Sánchez M.D., M.S.P.H. DR: Elyssa JOB#: [id number] XENA
[2017-12-26 05:26] LABS: BASOPHILS % (AUTO) 1.1 % (0.0-2.0); EOSINOPHILS % (AUTO) 1.8 % (0.0-3.0); HEMATOCRIT 38.2 % (37.0-47.0); HEMOGLOBIN 12.8 G/DL (12.0-16.0); LYMPHOCYTES % (AUTO) 30.4 % (20.0-45.0); MEAN CORPUSCULAR VOLUME 94 FL (80-99); MONOCYTES % (AUTO) 7.1 % (1.0-10.0); NEUTROPHILS % (AUTO) 59.7 % (45.0-75.0); PLATELET COUNT 193 K/UL (150-450); RED BLOOD COUNT 4.07 M/UL (4.20-5.40); RED CELL DISTRIBUTION WIDTH 11.1 % (11.6-14.8); WHITE BLOOD COUNT 5.5 K/UL (4.8-10.8)
[2017-12-26 05:45] LABS: ANION GAP 5 mmol/L (5-15); BLOOD UREA NITROGEN 18 mg/dL (7-18); CALCIUM 9.1 MG/DL (8.5-10.1); CARBON DIOXIDE 29 MMOL/L (21-32); CHLORIDE 110 MMOL/L (98-107); CREATININE 0.6 MG/DL (0.55-1.30); POTASSIUM 3.8 MMOL/L (3.5-5.1); SODIUM 144 MMOL/L (136-145)
--- NOTE | 2017-12-26 08:19 | Cardiology Report ---
APPROVED REPORT EKG Measurement Heart [id number] [place] [id number] Normal sinus rhythm Possible Left atrial enlargement Borderline ECG
[2017-12-26] MEDS ORDERED: Aspirin Baby 81mg ORAL SCH (09:00)
[2017-12-26] MEDS: Docusate 100mg cap ORAL SCH ×2 (09:38→21:00)
[2017-12-26] MEDS: Lisinopril 2.5mg tab ORAL SCH (09:38)
[2017-12-26] MEDS: Metoprolol 25mg tab ORAL SCH ×2 (09:39→21:43)
[2017-12-26] MEDS: Heparin 5000 units/ml inj SUBQ SCH (09:40)
--- NOTE | 2017-12-26 10:14 | Diagnostic Imaging Report ---
Indication:Abdominal pain Technique: Grayscale and duplex Doppler imaging of the abdomen performed. Comparison: None Findings: At the lateral segment of the left lobe of the liver there is a 1.6 x 0.9 cm cyst noted. Liver is otherwise unremarkable. Another small cyst within the liver also demonstrated. The gallbladder is unremarkable. Aorta is a moderately calcified. Both kidneys appear unremarkable. The spleen is normal in size. There is no biliary ductal dilatation identified. Doppler evaluation of the main portal vein shows patency. There is no ascites. No hydronephrosis seen. There is a right renal cyst measuring 1.2 cm Impression: No acute findings Liver cysts. Right renal cyst.
--- NOTE | 2017-12-26 10:31 | General Progress Note ---
Assessment/Plan Problem List: (1) Cognitive and behavioral changes ICD Codes: R41.89 - Other symptoms and signs involving cognitive functions and awareness; R46.89 - Other symptoms and signs involving appearance and behavior SNOMED: 426696844 (2) Fall ICD Codes: W19.XXXA - Unspecified fall, initial encounter SNOMED: 2889542, 424446370 (3) NSTEMI (non-ST elevated myocardial infarction) ICD Codes: I21.4 - Non-ST elevation (NSTEMI) myocardial infarction SNOMED: 176179816 (4) Head trauma ICD Codes: S09.90XA - Unspecified injury of head, initial encounter SNOMED: 47323463 (5) Malnutrition ICD Codes: E46 - Unspecified protein-calorie malnutrition SNOMED: 09043213 (6) Hypoalbuminemia ICD Codes: E88.09 - Other disorders of plasma-protein metabolism, not elsewhere classified SNOMED: 116931351 (7) Major depressive disorder ICD Codes: F32.9 - Major depressive disorder, single episode, unspecified SNOMED: 280608503 Assessment/Plan Mechanical Fall, r/o arrhythmia/heart block and acs , with Cognitive deficits - appreciate cardiology consult and neurology consult - f/u brain MRI - EKG WNL, no ST segment changes - fall precautions - admit to tele under obs - CT head negative - echo reviewed, patient has decreased EF of <40% - f/u neurology workup with RPR, B12 and folate WNL, hepatitis and HIV negative Elevated troponin, r/o NSTEMI and CHF (<40%) - cardiology following - EKG WNL - continue to monitor on tele - BB, kj, asa, statin Head Trauma - wound care Malnutrition and Hypoalbuminemia and weakness with anxiety Depression and Cognitive Decline - appreciate Psyche consult - continue psyche meds - consult nutrition - ensure TID - soft diet for dentures - PT OT Code Status - FULL CODE DVT proph - heparin, will monitor eye laceration closely GI prophylaxis - protonix H/O CVA H/O hysterectomy with benign tumor Dispo - home with vs SNF pending PT eval Subjective Date patient seen: Dec 26, 2017 Time patient seen: 08:30 ROS Limited/Unobtainable: Yes Allergies: Coded Allergies: No Known Allergies (Unverified , 12/25/17) Subjective limited ROS given patient language barrier. translating at bedside. Patient denies chest pain, dizziness, shortness of breath and ate two meals yesterday. Objective Last 24 Hour Vital Signs Date Time Temp Pulse Resp B/P (MAP) Pulse Ox O2 Delivery O2 Flow Rate FiO2 12/26/17 09:39 60 126/71 12/26/17 09:38 126/71 12/26/17 09:16 72 12/26/17 08:00 97.3 60 18 126/71 (89) 99 12/26/17 04:00 66 12/26/17 04:00 98.2 75 16 115/69 (84) 99 12/26/17 04:00 Room Air 12/26/17 00:00 Room Air 12/26/17 00:00 73 12/26/17 00:00 98.0 72 18 109/68 (82) 98 12/25/17 20:14 66 112/64 12/25/17 20:00 97.9 66 16 112/64 (80) 96 12/25/17 20:00 86 12/25/17 20:00 Room Air 12/25/17 16:00 70 12/25/17 16:00 97.3 62 16 125/72 (89) 96 12/25/17 16:00 Room Air 12/25/17 12:00 67 12/25/17 12:00 95.9 70 18 143/81 (101) 95 12/25/17 12:00 Room Air 12/25/17 11:53 143/81 Intake and Output 12/25/17 12/26/17 19:00 07:00 Intake Total 600 ml Output Total 550 ml 350 ml Balance 50 ml -350 ml Intake Oral 600 ml Output Urine Total 550 ml 350 ml Laboratory Tests 12/25/17 10:40: Troponin I 0.151H, HIV (1&2) Antibody Rapid Negative 12/25/17 15:35: Troponin I 0.150H, Hepatitis A IgM Antibody Negative, Hepatitis B Surface Antigen Negative, Hepatitis B Core IgM Antibody Negative, Hepatitis C Antibody < 0.1 12/25/17 15:55: Carcinoembryonic Antigen 4.1 12/25/17 19:30: Urine Color Pale yellow, Urine Appearance Clear, Urine pH 8, Urine Specific Danielson 1.010, Urine Protein Negative, Urine Glucose (UA) Negative, Urine Ketones Negative, Urine Blood Negative, Urine Nitrite Negative, Urine Bilirubin Negative, Urine Urobilinogen Normal, Urine Leukocyte Esterase Negative, Urine RBC 0-2, Urine WBC 0-2, Urine Squamous Epithelial Cells Occasional, Urine Bacteria Few 12/25/17 21:46: Troponin I 0.142H 12/25/17 22:00: Erythrocyte Sedimentation Rate 20, Hemoglobin A1c > 16.0H, Vitamin B12 Level 971 , Vitamin D 25-Hydroxy [Pending], 25-Hydroxy Vitamin D2 [Pending], 25-Hydroxy Vitamin D3 [Pending], Folate 34.4, Thyroid Stimulating Hormone (TSH) 1.497, Rapid Plasma Reagin [Pending] 12/26/17 04:46: Troponin I 0.144H, White Blood Count 5.5, Red Blood Count 4.07L, Hemoglobin 12.8 , Hematocrit 38.2, Mean Corpuscular Volume 94, Mean Corpuscular Hemoglobin 31.4H , Mean Corpuscular Hemoglobin Concent 33.5, Red Cell Distribution Width 11.1L, Platelet Count 193, Mean Platelet Volume 7.3, Neutrophils (%) (Auto) 59.7, Lymphocytes (%) (Auto) 30.4, Monocytes (%) (Auto) 7.1, Eosinophils (%) (Auto) 1.8, Basophils (%) (Auto) 1.1, Sodium Level 144, Potassium Level 3.8, Chloride Level 110H, Carbon Dioxide Level 29, Anion Gap 5, Blood Urea Nitrogen 18, Creatinine 0.6, Estimat Glomerular Filtration Rate , Glucose Level 87, Calcium Level 9.1, Magnesium Level 2.2 Height (Feet): 5 Height (Inches): 4.00 Weight (Pounds): 94 General Appearance: WD/WN, no apparent distress, cachetic, thin EENT: PERRL/EOMI, normal ENT inspection, TMs normal Neck: non-tender, normal alignment, supple, normal inspection Cardiovascular: normal peripheral pulses, normal rate, regular rhythm, regularly irregular, no gallop/murmur Respiratory/Chest: chest wall non-tender, lungs clear, normal breath sounds, no respiratory distress, no accessory muscle use, respiratory distress Abdomen: normal bowel sounds, non tender, soft, no organomegaly, no mass, abnormal bowel sounds, hyperactive bowel sounds Extremities: normal range of motion, non-tender Edema: no edema noted Arm (L), no edema noted Arm (R), no edema noted Leg (L), no edema noted Leg (R), no edema noted Pedal (L), no edema noted Pedal (R), no edema noted Generalized Neurologic: no motor/sensory deficits, responsive, normal mood/affect Skin: normal pigmentation, warm/dry Addie Medellin DO Dec 26, 2017 10:31
[2017-12-26] MEDS ORDERED: Morphine Sulfate 2mg/ml Inj IVP PRN (11:00)
[2017-12-26] MEDS ORDERED: Acetaminophen 650 MG SUPP RECTAL PRN ×2 (11:00→14:15)
--- NOTE | 2017-12-26 12:44 | Diagnostic Imaging Report ---
Indication: Right-sided weakness. Technique: The head was imaged in a 1.5 [place] magnet. Sequences obtained include sagittal and axial T1 FLAIR, axial T2 fast spin echo with fat saturation, axial T2 FLAIR, diffusion and ADC map. Comparison: Noncontrast CT head 12/25/2017 Findings: There is moderate prominence of the sulci, ventricles, and basal cisterns consistent with atrophy. Moderate, nonspecific T2 hyperintensity noted within white matter. This may be due to chronic small vessel disease. There is no restricted diffusion. There are likely old the lacunar infarcts involving the left aspect of the brandy and the basal ganglia regions. This is confounded by the presence of multiple prominent perivascular spaces (Virchow-Tino) within the basal ganglia regions bilaterally. Downey-white differentiation is normal. There is no mass effect, midline shift, edema, or hemorrhage. There are no abnormal extra-axial or intra-axial fluid collections. The corpus callosum and sella are unremarkable. The brainstem and cerebellum are unremarkable. The right ocular globe is abnormally enlarged without focal misshapen posterior contour. Not certain of the acuity of this finding. However, there are linear soft tissue signal abnormalities indicative of infiltration of the retrobulbar fat. There is also subcutaneous edema involving the right periorbital and facial soft tissues finding that is much more evident and conspicuous by MR imaging than on the noncontrast CT performed one day earlier. In the setting of trauma, the orbital findings are suspicious for a retrobulbar bleed. There is no proptosis. Please correlate clinically. Consultation with the ophthalmology is recommended. Bone marrow signal within the visualized osseous structures appears age appropriate and unremarkable otherwise. Impression: No acute CVA, edema or mass effect. Suspicion of right retrobulbar hemorrhage as described above. Correlate clinically for any recent history of right orbital trauma. Further evaluation with a maxillofacial CT may be of benefit to assess for fractures and the integrity of the bony orbit. Moderate atrophy and evidence of chronic small vessel disease involving white matter tracts. 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 Extensive perivascular spaces within the basal ganglia bilaterally.
--- NOTE | 2017-12-26 13:43 | General Progress Note ---
Assessment/Plan Problem List: (1) Major depressive disorder ICD Codes: F32.9 - Major depressive disorder, single episode, unspecified SNOMED: 944682558 (2) Anxiety ICD Codes: F41.9 - Anxiety disorder, unspecified SNOMED: [id number] Status: stable Assessment/Plan Remeron 7.5 mg qhs Lexapro 10mg qam provided ro/st the was given the script mri + for orbital hemorrhage d/w primary ophthalmology consult Subjective Neurologic/Psychiatric: Reports: anxiety, depressed Allergies: Coded Allergies: No Known Allergies (Unverified , 12/25/17) Subjective the pt is doing better slept well no behaviors. Objective Last 24 Hour Vital Signs Date Time Temp Pulse Resp B/P (MAP) Pulse Ox O2 Delivery O2 Flow Rate FiO2 12/26/17 12:00 Room Air 12/26/17 12:00 97.7 63 20 122/61 (81) 99 12/26/17 11:32 65 12/26/17 09:39 60 126/71 12/26/17 09:38 126/71 12/26/17 09:16 72 12/26/17 08:00 Room Air 12/26/17 08:00 97.3 60 18 126/71 (89) 99 12/26/17 04:00 66 12/26/17 04:00 98.2 75 16 115/69 (84) 99 12/26/17 04:00 Room Air 12/26/17 00:00 Room Air 12/26/17 00:00 73 12/26/17 00:00 98.0 72 18 109/68 (82) 98 12/25/17 20:14 66 112/64 12/25/17 20:00 97.9 66 16 112/64 (80) 96 12/25/17 20:00 86 12/25/17 20:00 Room Air 12/25/17 16:00 70 12/25/17 16:00 97.3 62 16 125/72 (89) 96 12/25/17 16:00 Room Air Intake and Output 12/25/17 12/26/17 19:00 07:00 Intake Total 600 ml Output Total 550 ml 350 ml Balance 50 ml -350 ml Intake Oral 600 ml Output Urine Total 550 ml 350 ml Laboratory Tests 12/25/17 15:35: Troponin I 0.150H, Hepatitis A IgM Antibody Negative, Hepatitis B Surface Antigen Negative, Hepatitis B Core IgM Antibody Negative, Hepatitis C Antibody < 0.1 12/25/17 15:55: Carcinoembryonic Antigen 4.1 12/25/17 19:30: Urine Color Pale yellow, Urine Appearance Clear, Urine pH 8, Urine Specific [place] 1.010, Urine Protein Negative, Urine Glucose (UA) Negative, Urine Ketones Negative, Urine Blood Negative, Urine Nitrite Negative, Urine Bilirubin Negative, Urine Urobilinogen Normal, Urine Leukocyte Esterase Negative, Urine RBC 0-2, Urine WBC 0-2, Urine Squamous Epithelial Cells Occasional, Urine Bacteria Few 12/25/17 21:46: Troponin I 0.142H 12/25/17 22:00: Erythrocyte Sedimentation Rate 20, Hemoglobin A1c > 16.0H, Vitamin B12 Level 971 , Vitamin D 25-Hydroxy [Pending], 25-Hydroxy Vitamin D2 [Pending], 25-Hydroxy Vitamin D3 [Pending], Folate 34.4, Thyroid Stimulating Hormone (TSH) 1.497, Rapid Plasma Reagin [Pending] 12/26/17 04:46: White Blood Count 5.5, Red Blood Count 4.07L, Hemoglobin 12.8, Hematocrit 38.2, Mean Corpuscular Volume 94, Mean Corpuscular Hemoglobin 31.4H, Mean Corpuscular Hemoglobin Concent 33.5, Red Cell Distribution Width 11.1L, Platelet Count 193, Mean Platelet Volume 7.3, Neutrophils (%) (Auto) 59.7, Lymphocytes (%) (Auto) 30.4, Monocytes (%) (Auto) 7.1, Eosinophils (%) (Auto) 1.8, Basophils (%) (Auto ) 1.1, Sodium Level 144, Potassium Level 3.8, Chloride Level 110H, Carbon Dioxide Level 29, Anion Gap 5, Blood Urea Nitrogen 18, Creatinine 0.6, Estimat Glomerular Filtration Rate , Glucose Level 87, Calcium Level 9.1, Magnesium Level 2.2, Troponin I 0.144H Height (Feet): 5 Height (Inches): 4.00 Weight (Pounds): 94 General Appearance: no apparent distress, alert Neurologic: oriented x 3, responsive, depressed affect Mariana Peng MD Dec 26, 2017 13:43
--- NOTE | 2017-12-26 15:11 | General Progress Note ---
Assessment/Plan Status: stable Assessment/Plan # Failure to thrive with weight loss and Malnutrition and Hypoalbuminemia and weakness --> nutrition is following, appreciate recs --> ensure TID --> soft diet for dentures --> obtain cea - pending # Leukopenia -- cause unknown, working up at this time --> WBC improved --> do not have patient's baseline --> hep and hiv are both negative --> us of the abdomen shows no acute findings --> have reviewed peripheral smear, no blasts --> no evidence of infection at this time/moment --> neupogen only if Anc < 1500 # Mechanical Fall, r/o arrhythmia/heart block and acs --> EKG WNL, no ST segment changes, fall precautions --> CT head negative --> continue troponins and EKG periodically --> cards recs appreciated # Elevated troponin, r/o NSTEMI --> nando cards recs # DVT proph --> heparin sq # H/O hysterectomy with benign tumor Greatly appreciate consultation! Subjective Date patient seen: Dec 26, 2017 ROS Limited/Unobtainable: Yes Allergies: Coded Allergies: No Known Allergies (Unverified , 12/25/17) Subjective Pt transferred to tele unit. Seen by PT/OT. Objective Last 24 Hour Vital Signs Date Time Temp Pulse Resp B/P (MAP) Pulse Ox O2 Delivery O2 Flow Rate FiO2 12/26/17 12:00 Room Air 12/26/17 12:00 97.7 63 20 122/61 (81) 99 12/26/17 11:32 65 12/26/17 09:39 60 126/71 12/26/17 09:38 126/71 12/26/17 09:16 72 12/26/17 08:00 Room Air 12/26/17 08:00 97.3 60 18 126/71 (89) 99 12/26/17 04:00 66 12/26/17 04:00 98.2 75 16 115/69 (84) 99 12/26/17 04:00 Room Air 12/26/17 00:00 Room Air 12/26/17 00:00 73 12/26/17 00:00 98.0 72 18 109/68 (82) 98 12/25/17 20:14 66 112/64 12/25/17 20:00 97.9 66 16 112/64 (80) 96 12/25/17 20:00 86 12/25/17 20:00 Room Air 12/25/17 16:00 70 12/25/17 16:00 97.3 62 16 125/72 (89) 96 12/25/17 16:00 Room Air Intake and Output 12/25/17 12/26/17 19:00 07:00 Intake Total 600 ml Output Total 550 ml 350 ml Balance 50 ml -350 ml Intake Oral 600 ml Output Urine Total 550 ml 350 ml Laboratory Tests 12/25/17 15:35: Troponin I 0.150H, Hepatitis A IgM Antibody Negative, Hepatitis B Surface Antigen Negative, Hepatitis B Core IgM Antibody Negative, Hepatitis C Antibody < 0.1 12/25/17 15:55: Carcinoembryonic Antigen 4.1 12/25/17 19:30: Urine Color Pale yellow, Urine Appearance Clear, Urine pH 8, Urine Specific [place] 1.010, Urine Protein Negative, Urine Glucose (UA) Negative, Urine Ketones Negative, Urine Blood Negative, Urine Nitrite Negative, Urine Bilirubin Negative, Urine Urobilinogen Normal, Urine Leukocyte Esterase Negative, Urine RBC 0-2, Urine WBC 0-2, Urine Squamous Epithelial Cells Occasional, Urine Bacteria Few 12/25/17 21:46: Troponin I 0.142H 12/25/17 22:00: Erythrocyte Sedimentation Rate 20, Hemoglobin A1c > 16.0H, Vitamin B12 Level 971 , Vitamin D 25-Hydroxy [Pending], 25-Hydroxy Vitamin D2 [Pending], 25-Hydroxy Vitamin D3 [Pending], Folate 34.4, Thyroid Stimulating Hormone (TSH) 1.497, Rapid Plasma Reagin [Pending] 12/26/17 04:46: White Blood Count 5.5, Red Blood Count 4.07L, Hemoglobin 12.8, Hematocrit 38.2, Mean Corpuscular Volume 94, Mean Corpuscular Hemoglobin 31.4H, Mean Corpuscular Hemoglobin Concent 33.5, Red Cell Distribution Width 11.1L, Platelet Count 193, Mean Platelet Volume 7.3, Neutrophils (%) (Auto) 59.7, Lymphocytes (%) (Auto) 30.4, Monocytes (%) (Auto) 7.1, Eosinophils (%) (Auto) 1.8, Basophils (%) (Auto ) 1.1, Sodium Level 144, Potassium Level 3.8, Chloride Level 110H, Carbon Dioxide Level 29, Anion Gap 5, Blood Urea Nitrogen 18, Creatinine 0.6, Estimat Glomerular Filtration Rate , Glucose Level 87, Calcium Level 9.1, Magnesium Level 2.2, Troponin I 0.144H Height (Feet): 5 Height (Inches): 4.00 Weight (Pounds): 94 General Appearance: no apparent distress EENT: PERRL/EOMI Neck: normal alignment Cardiovascular: normal peripheral pulses Respiratory/Chest: no respiratory distress Abdomen: soft Alfonso Savage MD Dec 26, 2017 15:11
--- NOTE | 2017-12-26 16:30 | Cardiology Report ---
APPROVED REPORT EKG Measurement Heart [id number] Normal sinus rhythm Normal ECG
--- NOTE | 2017-12-26 16:40 | Cardiology Report ---
APPROVED REPORT EKG Measurement Heart [id number] MT [id number] Normal sinus rhythm Normal ECG
--- NOTE | 2017-12-26 16:41 | Cardiology Report ---
APPROVED REPORT EKG Measurement Heart [id number] Normal sinus rhythm Lateral infarct, age undetermined Abnormal ECG
--- NOTE | 2017-12-26 16:56 | Cardiac Electrophysiology PN ---
Assessment/Plan Assessment/Plan 1. Elevated troponin. This could be due to [id number] myocardial infarction. EKG does not show any significant ST-T wave abnormalities. However, the patient does not have renal failure either. Echocardiogram showed Ef 55%. Continue aspirin, metoprolol and Lipitor. 2. Hypertension, on metoprolol 25 mg b.i.d. and lisinopril 2.5 mg daily. 3. Hyperlipidemia, on Lipitor. 4. Status post fall, right eye laceration, questionable syncope versus orthostatics. awaiting ophtalmologists evaluation RONIT LAGUNAS Subjective Subjective Awiting evaluation by ophtalmologist or transfer to [facility] Objective Last 24 Hour Vital Signs Date Time Temp Pulse Resp B/P (MAP) Pulse Ox O2 Delivery O2 Flow Rate FiO2 12/26/17 16:00 Room Air 12/26/17 16:00 97.7 66 19 139/86 (103) 97 12/26/17 13:00 Room Air 12/26/17 12:00 Room Air 12/26/17 12:00 97.7 63 20 122/61 (81) 99 12/26/17 11:32 65 12/26/17 09:39 60 126/71 12/26/17 09:38 126/71 12/26/17 09:16 72 12/26/17 08:00 Room Air 12/26/17 08:00 97.3 60 18 126/71 (89) 99 12/26/17 04:00 66 12/26/17 04:00 98.2 75 16 115/69 (84) 99 12/26/17 04:00 Room Air 12/26/17 00:00 Room Air 12/26/17 00:00 73 12/26/17 00:00 98.0 72 18 109/68 (82) 98 12/25/17 20:14 66 112/64 12/25/17 20:00 97.9 66 16 112/64 (80) 96 12/25/17 20:00 86 12/25/17 20:00 Room Air Intake and Output 12/25/17 12/26/17 18:59 06:59 Intake Total 600 ml Output Total 550 ml 350 ml Balance 50 ml -350 ml Intake Oral 600 ml Output Urine Total 550 ml 350 ml Laboratory Tests Test 12/25/17 19:30 11/5/18 21:46 12/25/17 22:00 12/26/17 04:46 Urine Color Pale yellow Urine Appearance Clear Urine pH 8 (4.5-8.0) Urine Specific [place] 1.010 (1.005-1.035) Urine Protein Negative (NEGATIVE) Urine Glucose (UA) Negative (NEGATIVE) Urine Ketones Negative (NEGATIVE) Urine Blood Negative (NEGATIVE) Urine Nitrite Negative (NEGATIVE) Urine Bilirubin Negative (NEGATIVE) Urine Urobilinogen Normal MG/DL (0.0-1.0) Urine Leukocyte Esterase Negative (NEGATIVE) Urine RBC 0-2 /HPF (0 - 2) Urine WBC 0-2 /HPF (0 - 2) Urine Squamous Epithelial Cells Occasional /LPF Urine Bacteria Few /HPF (NONE) Troponin I 0.142 ng/mL (0.000-0.056) 0.144 ng/mL (0.000-0.056) Erythrocyte Sedimentation Rate 20 MM/HR (0-30) Hemoglobin A1c > 16.0 % (4.3-6.0) H Vitamin B12 Level 971 PG/ML (193-986) Vitamin D 25-Hydroxy Pending 25-Hydroxy Vitamin D2 Pending 25-Hydroxy Vitamin D3 Pending Folate 34.4 NG/ML (8.6-58.9) Thyroid Stimulating Hormone (TSH) 1.497 uiU/mL (0.358-3.740) Rapid Plasma Reagin Pending White Blood Count 5.5 K/UL (4.8-10.8) Red Blood Count 4.07 M/UL (4.20-5.40) L Hemoglobin 12.8 G/DL (12.0-16.0) Hematocrit 38.2 % (37.0-47.0) Mean Corpuscular Volume 94 FL (80-99) Mean Corpuscular Hemoglobin 31.4 PG (27.0-31.0) H Mean Corpuscular Hemoglobin Concent 33.5 G/DL (32.0-36.0) Red Cell Distribution Width 11.1 % (11.6-14.8) L Platelet Count 193 K/UL (150-450) Mean Platelet Volume 7.3 FL (6.5-10.1) Neutrophils (%) (Auto) 59.7 % (45.0-75.0) Lymphocytes (%) (Auto) 30.4 % (20.0-45.0) Monocytes (%) (Auto) 7.1 % (1.0-10.0) Eosinophils (%) (Auto) 1.8 % (0.0-3.0) Basophils (%) (Auto) 1.1 % (0.0-2.0) Sodium Level 144 MMOL/L (136-145) Potassium Level 3.8 MMOL/L (3.5-5.1) Chloride Level 110 MMOL/L (98-107) H Carbon Dioxide Level 29 MMOL/L (21-32) Anion Gap 5 mmol/L (5-15) Blood Urea Nitrogen 18 mg/dL (7-18) Creatinine 0.6 MG/DL (0.55-1.30) Estimat Glomerular Filtration Rate mL/min (>60) Glucose Level 87 MG/DL (74-106) Calcium Level 9.1 MG/DL (8.5-10.1) Magnesium Level 2.2 MG/DL (1.8-2.4) Objective HEAD AND NECK: No JVD. LUNGS: Clear. CARDIOVASCULAR: Regular S1 and S2 with no gallop or murmur. ABDOMEN: Soft and nontender. EXTREMITIES: No pitting edema. The laceration of the right eyebrow has been sutured. Fady Ramsey MD Dec 26, 2017 16:56
[2017-12-26] MEDS ORDERED: Lidocaine 1% 10mg/ml/Epi 0.005mg/ml 30ml vial INJ ONE (20:00)
--- NOTE | 2017-12-26 20:59 | Consultation ---
Consult Note Consult Note Ophthalmology/Ophthalmic Plastic Surgery Consultation Referring Physician: Addie Medellin MD Reason for Consultation: eye trauma History of the present illness: The patient is a 77-year-old woman who fell yesterday and struck her face. She notes swelling around the right eye. Per her she has longstanding vision issues in the right eye. She has a history of cataract surgery in the right eye. Past medical Hx: hypertension CVA Medications: Current Medications Medications (Trade) Dose Ordered Sig/Jie Route PRN Reason Start Time Stop Time Status Last Admin Dose Admin Acetaminophen (Tylenol) 650 mg Q4H PRN RECTAL T>100.5 12/26/17 11:00 01/24/18 10:59 Acetaminophen (Tylenol) 650 mg Q4H PRN RECTAL Mild Pain (Pain Scale 1-3) 12/26/17 14:15 01/24/18 10:14 Aspirin (ASA) 81 mg DAILY ORAL 12/27/17 09:00 01/25/18 08:59 Atorvastatin Calcium (Lipitor) 40 mg BEDTIME ORAL 12/26/17 21:00 01/24/18 20:59 Dextrose (Dextrose 50%) 25 ml Q30M PRN IV Hypoglycemia 12/26/17 10:45 01/24/18 10:14 Dextrose (Dextrose 50%) 50 ml Q30M PRN IV Hypoglycemia 12/26/17 10:45 01/24/18 10:14 Docusate Sodium (Colace) 200 mg EVERY 12 HOURS ORAL 12/26/17 21:00 01/24/18 10:14 Escitalopram Oxalate (Lexapro) 10 mg DAILY ORAL 12/27/17 09:00 01/24/18 11:29 Lisinopril (Zestril) 2.5 mg DAILY ORAL 12/27/17 09:00 01/24/18 10:14 Metoprolol Tartrate (Lopressor) 25 mg EVERY 12 HOURS ORAL 12/26/17 21:00 01/24/18 20:59 Mirtazapine (Remeron) 7.5 mg BEDTIME ORAL 12/26/17 21:00 01/24/18 20:59 Morphine Sulfate (Morphine Sulfate) 2 mg Q6H PRN IVP Moderate Pain (Pain Scale 4-6) 12/26/17 11:00 01/01/18 10:59 Ondansetron HCl (Zofran) 4 mg Q6H PRN IVP Nausea & Vomiting 12/26/17 11:00 01/25/18 10:59 Pantoprazole (Protonix) 40 mg DAILY ORAL 12/27/17 09:00 01/25/18 08:59 Allergies: NKDA Family History: non-contributory Social History: no tobacco Review of Systems: General: no fever HEENT: see HPI Cardiac: no chest pain Respiratory: no shortness of breath GI: no nausea : no urinary complaints MS: no joint pains Derm: no rashes Psychiatric: no depression Neurologic: no numbness, no weakness Heme: no easy bruising Examination: Mini-mental status examination revealed the patient to be awake, alert and oriented to person, place and time with appropriate mood and affect. Visual Acuity at near without correction: OD: Count fingers at 1 foot OS: 20/400 Intraocular pressure by Schiotz: OD: 9 mmHg OS: 9 mmHg Pupils: right pupil post surgical and minimally reactive; left pupil round and normally reactive Extra-ocular motility: full OU Confrontational visual arnold: pt was unable to cooperate Anterior Segments: External: ight periocular ecchymosis and edema, lids not tense, sutured right brow laceration; normal lids and orbits OS Conjunctivae: subconjunctival hemorrhage OD; white and quiet OS Cornea: Clear OU Anterior Chambers: Deep and Quiet OU Irides: Round and flat OU Lenses: PCIOL OD; NS OS Dilated Fundus Examination (phenylephrine 2.5%, tropicamide 1%) Vitreous: dislocated IOL OD; clear OS Optic Nerves: significant peripapillary atrophy OD; mild PPA OS Vessels: Normal course and caliber OU Maculae: extensive atrophy OD; flat OS Periphery: peripheral pigmentary changes OD; normal OS Extended Ophthalmoscopy was performed OU documenting the above findings. Studies: MRI reviewed . Assessment/Plan Impression: 1. dislocated intraocular lens, right eye 2. Macular atrophy, right eye 3. Perio-ocular contusion, right eye Assessment and Plan: The patient is a 77-year-old woman who sustained a fall yesterday morning and struck the right side of her face. There is a possible retrobulbar hematoma based on the MRI, though there is no evidence of compartment syndrome and this can likely be observed for spontaneous resolution. She also has significant periocular ecchymosis which will also resolve spontaneously. She has a number of findings in her right eye that are likely longstanding including extensive peripapillary and macular atrophy. The intraocular lens in her right eye is dislocated and it is unclear if this is a new finding, though this can be managed on an outpatient basis. 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 It is imperative that she have outpatient ophthalmology follow up upon discharge. This was discussed with Dr. Medellin. Thank you very much for this consultation Piotr Fregoso M.D. [phone] Piotr Fregoso MD Dec 26, 2017 20:58
[2017-12-26] MEDS ORDERED: Atorvastatin 20mg tab ORAL SCH (21:00)
[2017-12-26] MEDS ORDERED: Heparin 5000 units/ml inj SUBQ SCH (21:00)
--- NOTE | 2017-12-26 22:22 | Neurology Progress Note ---
Interim History Interim History Interim History Ms. Verde feels much better today. She is still unable to open her right eye due to the swelling. She did some walking today and felt steadier. The mind is clear today. As per her she is close to her baseline. She denies any new neurologic symptoms. Review of Systems Neuro Review of Systems Benign. Objective Physical Exam Last Vital Signs Date Time Temp Pulse Resp B/P (MAP) Pulse Ox O2 Delivery O2 Flow Rate FiO2 12/26/17 21:43 66 142/69 12/26/17 21:00 Room Air 12/26/17 20:00 97.5 19 97 Laboratory Tests Test 12/26/17 04:46 White Blood Count 5.5 K/UL (4.8-10.8) Red Blood Count 4.07 M/UL (4.20-5.40) L Hemoglobin 12.8 G/DL (12.0-16.0) Hematocrit 38.2 % (37.0-47.0) Mean Corpuscular Volume 94 FL (80-99) Mean Corpuscular Hemoglobin 31.4 PG (27.0-31.0) H Mean Corpuscular Hemoglobin Concent 33.5 G/DL (32.0-36.0) Red Cell Distribution Width 11.1 % (11.6-14.8) L Platelet Count 193 K/UL (150-450) Mean Platelet Volume 7.3 FL (6.5-10.1) Neutrophils (%) (Auto) 59.7 % (45.0-75.0) Lymphocytes (%) (Auto) 30.4 % (20.0-45.0) Monocytes (%) (Auto) 7.1 % (1.0-10.0) Eosinophils (%) (Auto) 1.8 % (0.0-3.0) Basophils (%) (Auto) 1.1 % (0.0-2.0) Sodium Level 144 MMOL/L (136-145) Potassium Level 3.8 MMOL/L (3.5-5.1) Chloride Level 110 MMOL/L (98-107) H Carbon Dioxide Level 29 MMOL/L (21-32) Anion Gap 5 mmol/L (5-15) Blood Urea Nitrogen 18 mg/dL (7-18) Creatinine 0.6 MG/DL (0.55-1.30) Estimat Glomerular Filtration Rate mL/min (>60) Glucose Level 87 MG/DL (74-106) Calcium Level 9.1 MG/DL (8.5-10.1) Magnesium Level 2.2 MG/DL (1.8-2.4) Troponin I 0.144 ng/mL (0.000-0.056) Neurologic Exam Objective PHYSICAL EXAMINATION: GENERAL: She is a well-developed, well-nourished, Spanish [place] lady in no acute distress. HEAD: Normocephalic with right upper lid laceration that has been sutured and right periorbital ecchymosis. EENT: Examination benign except for right subconjunctival hemorrhage. NECK: No neck rigidity was observed. NEUROLOGIC EXAMINATION: MENTAL STATUS EXAMINATION: She was awake and alert. She was oriented to [facility], [facility], and December. She did not know the exact date or year. She was able to recall 3/3 words immediately, but could only remember 2/3 words in 1 minute and 3 minutes even on the second trial. She was able to remember presidents, Trump and Obama, but could not remember presidents prior to that. Her mathematical skills were impaired. Her visuospatial function was also impaired. SPEECH: She had no dysarthria. LANGUAGE: She had no aphasia in Spanish as per the Spanish fire prevention specialist. CRANIAL NERVE EXAMINATION: II: The visual arnold were intact on confrontation testing. III, IV & : The external ocular movements were full and the pupils 3 mm in diameter, equal, round, regular, and reactive sluggishly to light. V: She had normal facial sensations, and the temporales, masseters, and pterygoids functioned normally. VII: She had a mild right seventh central facial paresis. VIII: She was able to hear and had no nystagmus. IX: The palate moved symmetrically on phonation. X: She had no hoarseness of voice. XI: The sternocleidomastoids and trapezii function normally. XII: The tongue was in the midline without any fasciculations or atrophy. MOTOR SYSTEM: The tone was normal in all four extremities. Examination of muscle mass revealed generalized muscle wasting. Examination of power revealed G 5/5 power except for G 5-/5 power in the right finger extensors, iliopsoas, and toe extensors. SENSORY EXAMINATION: She had intact sensations to pinprick, light touch, and graphesthesia. COORDINATION: She performed well on [id number] and [id number] testing. REFLEXES: 1++ on the right and 1+ on the left at the biceps, triceps, brachioradialis, and knees, 0 at both ankles. The plantar responses were flexor bilaterally. STANCE: She stood up with support on one sides. GAIT: She walked with support on one sides. Impression/Recommendations Diagnostic Impression 1. Ms. Conrad Verde is a 77-year-old, right-handed, Spanish [place] lady, with a past history of hypertension, dyslipidemia, and cerebrovascular disease with a prior stroke who was functioning well until 12/25/17 when she felt dizzy and then fell. She lacerated the right upper lid and sustained a right periorbital hematoma. While she was being evaluated in the emergency room she was also thought to have had a non ST elevation myocardial infarction. 2. She feels much better today. She is still unable to open her right eye due to the swelling. She did some walking today and felt steadier. The mind is clear today. As per her she is close to her baseline. She denies any new neurologic symptoms. 3. On neurological examination, at this time, she does have problems with orientation to the exact date, problems with recent and remote memory, visuospatial function, and higher cognitive function. A right VII central facial paresis, right hemiparesis involving both upper and lower extremities, slightly brisk reflexes on the right side compared to the left, and she is able to walk with support on one sides. 4. A CT scan of the brain performed on 12/25/17 revealed atrophy and some deep white matter pathology but no acute pathology. 5. The MRI of the brain done on 12/26/17 revealed moderate prominence of the sulci, ventricles, and basal cisterns consistent with atrophy. Moderate, nonspecific T2 hyperintensities noted within white matter due to chronic small vessel disease. Old lacunar infarcts involving the left brandy and the basal ganglia bilaterally were seen. No acute pathology was seen. 6. Laboratory data on my initial evaluation revealed a relatively normal CBC, relatively normal chemistry panel except for low potassium at 3.2, a minimally elevated chloride at 108, a benign urinalysis and an INR of 0.9. 7. Further laboratory test for treatable causes of altered mental state were benign. 8. The patient's history, neurological examination, laboratory data, and imaging studies are most compatible with a fall due to unknown reasons. She however as a result of the fall sustained closed head trauma with no intracranial pathology seen on the CT scan or MRI scan but with a right upper lid laceration and right periorbital ecchymosis. In addition she sustained right ocular trauma. 9. She does have significant cognitive dysfunction however this has improved. 10. Her right paresis with brisker reflexes on the right side is due to old cerebro-vascular disease. Recommendations 1. Continue present management. 2. Await Carotid duplex to evaluate the patient for hemodynamically significant carotid disease. 3. Mobilize with the help of physical therapy. Hieu Sánchez M.D., M.S.HIEU MUÑOZ Dec 26, 2017 22:22
[2017-12-27] VITALS: BP 136/76
[2017-12-27 04:00] VITALS: BP 132/67
--- NOTE | 2017-12-27 07:32 | General Progress Note ---
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 # DVT proph --> heparin sq Greatly appreciate consultation! Subjective Allergies: Coded Allergies: No Known Allergies (Unverified , 12/25/17) Subjective Seen by optho last night Objective Last 24 Hour Vital Signs Date Time Temp Pulse Resp B/P (MAP) Pulse Ox O2 Delivery O2 Flow Rate FiO2 12/27/17 04:00 98.1 58 16 132/67 (88) 97 12/27/17 03:34 59 12/27/17 00:00 97.5 64 16 136/76 (96) 97 12/26/17 23:21 60 12/26/17 21:43 66 142/69 12/26/17 21:00 Room Air 12/26/17 20:00 97.5 66 19 142/69 (93) 97 12/26/17 19:58 68 12/26/17 16:00 Room Air 12/26/17 16:00 97.7 66 19 139/86 (103) 97 12/26/17 15:52 59 12/26/17 13:00 Room Air 12/26/17 12:00 Room Air 12/26/17 12:00 97.7 63 20 122/61 (81) 99 12/26/17 11:32 65 12/26/17 09:39 60 126/71 12/26/17 09:38 126/71 12/26/17 09:16 72 12/26/17 08:00 Room Air 12/26/17 08:00 97.3 60 18 126/71 (89) 99 Intake and Output 12/26/17 12/27/17 19:00 07:00 # Voids 2 Height (Feet): 5 Height (Inches): 4.00 Weight (Pounds): 93 Objective HEAD AND NECK: No JVD. LUNGS: Clear tab CARDIOVASCULAR: Regular S1 and S2 with no gallop or murmur. ABDOMEN: Soft and nontender. EXTREMITIES: No pitting edema. The laceration of the right eyebrow has been sutured. NEURO: Hebrew speaking Alfonso Savage MD Dec 27, 2017 07:32
[2017-12-27 08:00] VITALS: BP 108/70
--- NOTE | 2017-12-27 08:10 | Physician Query ---
--------- THIS DOCUMENT IS A PERMANENT PART OF THE MEDICAL RECORD --------- PLEASE COMPLETE DOCUMENT BEFORE SIGNING Dear Dr. Medellin Date: 2017 Coarse Wire Drawer/CDS Name: Dulce Mendoza Coarse Wire Drawer/CDS Phone No.: [phone] Exercise your independent professional judgment when responding to the query. Questions asked do not imply a particular answer is desired or expected. We greatly appreciate your clarification on this issue. CLINICAL DOCUMENTATION STATES: H&P and progress notes plan includes "Malnutrition". Patient is admitted with NSTEMI. CLINICAL FINDINGS SHOW: BMI: 16, Albumin: 3.7 Can you please specify the severity and type of Malnutrition: a. Severity b. Type [ ] Mild [ ] Protein Malnutrition [x ] Moderate [x ] Protein/Calorie Malnutrition [ ] Severe Criteria: Mild to Moderate Malnutrition >Serum albumin 2.8 to 3.4 g/dL or Pre-albumin 5 to 7 mg/dl (3) >Inadequate nutritional intake (1, 2, 3, 4) >NPO > 5 days >Weight loss: 5% in 1 month or 7.5% in 3 months or 10% in 6 months (1,3,4) Criteria: Moderate to Severe Malnutrition >Serum Albumin < 2.8 g/dL (1,2) >Lymphocytes < 1500/uL (2) >Inadequate nutritional intake3 , high stress e.g. major trauma, sepsis, pancreatitis, heredia etc. >Decubitus ulcers (1,2) , skin breakdown(2), easy hair pluckability >Weight <80% standard for height (2) >Triceps skin fold <3 mm2 >Mid-arm muscle circumference <25 cm2 >Creatinine-height index <60% standard (2) Condition Present on Admission: [x ] Yes [ ] No [ ] Unable to determine Please also document in your Progress Notes and/or Discharge Summary and indicate if the condition was present on admission. Royce MCCALLUM
[2017-12-27] MEDS: Metoprolol 25mg tab ORAL SCH (08:22)
[2017-12-27] MEDS: Docusate 100mg cap ORAL SCH (08:22)
[2017-12-27 08:23] VITALS: BP 108/70
[2017-12-27] MEDS ORDERED: Aspirin Baby 81mg ORAL SCH (09:00)
[2017-12-27] MEDS ORDERED: Lisinopril 2.5mg tab ORAL SCH (09:00)
--- NOTE | 2017-12-27 09:55 | General Progress Note ---
Assessment/Plan Problem List: (1) Hematoma ICD Codes: T14.8XXA - Other injury of unspecified body region, initial encounter SNOMED: 736927115 (2) Cognitive and behavioral changes ICD Codes: R41.89 - Other symptoms and signs involving cognitive functions and awareness; R46.89 - Other symptoms and signs involving appearance and behavior SNOMED: 530830984 (3) Fall ICD Codes: W19.XXXA - Unspecified fall, initial encounter SNOMED: 9482332, 527060122 Qualifiers: Qualified Codes: W19.XXXD - Unspecified fall, subsequent encounter (4) NSTEMI (non-ST elevated myocardial infarction) ICD Codes: I21.4 - Non-ST elevation (NSTEMI) myocardial infarction SNOMED: 995261174 (5) Head trauma ICD Codes: S09.90XA - Unspecified injury of head, initial encounter SNOMED: 95643436 Qualifiers: Qualified Codes: S09.90XA - Unspecified injury of head, initial encounter (6) Malnutrition ICD Codes: E46 - Unspecified protein-calorie malnutrition SNOMED: 04469121 Qualifiers: Qualified Codes: E44.0 - Moderate protein-calorie malnutrition (7) Hypoalbuminemia ICD Codes: E88.09 - Other disorders of plasma-protein metabolism, not elsewhere classified SNOMED: 890209269 (8) Major depressive disorder ICD Codes: F32.9 - Major depressive disorder, single episode, unspecified SNOMED: 661483596 Qualifiers: Qualified Codes: F32.1 - Major depressive disorder, single episode, moderate (9) Dislocated intraocular lens ICD Codes: T85.22XA - Displacement of intraocular lens, initial encounter SNOMED: 724409241 Assessment/Plan Retrobulbar hematoma with dislocated lense- improved - appreciate Ophtho reqs - patient to follow up with her case finisher - pain control with tylenol Mechanical Fall - appreciate cardiology consult and neurology consult - f/u brain MRI - EKG WNL, no ST segment changes - CT head negative - MRI showed chronic changes with possible retrobulbar hemorrhage - echo reviewed, patient has decreased EF of <40% - f/u neurology workup with RPR, B12 and folate WNL, hepatitis and HIV negative - Carotid us showed minimal plaque in internal carotid of 5% Elevated troponin, r/o NSTEMI and CHF (<40%) - cardiology following - EKG WNL - continue to monitor on tele - BB, kj, asa, statin Head Trauma - wound care Malnutrition and Hypoalbuminemia and weakness with anxiety Depression and Cognitive Decline - petern lost 18 pounds in the last year - appreciate Psyche consult - continue psyche meds - consult nutrition - ensure TID - soft diet for dentures - PT OT Code Status - FULL CODE DVT proph - heparin, will monitor eye laceration closely GI prophylaxis - protonix H/O CVA H/O hysterectomy with benign tumor Dispo - home with vs SNF pending PT eval I have spent approximately 70 minutes in regard to patient care and counseling and an additional 2 hours regarding coordination of care with multiple different Ophthalmologists and Medical centers for possible transfer in acute setting of possible retrobulbar hemorrhage. Subjective Date patient seen: Dec 27, 2017 Time patient seen: 09:00 ROS Limited/Unobtainable: No Allergies: Coded Allergies: No Known Allergies (Unverified , 12/25/17) Subjective Uzbek library circulation assistant available at bedside. Patient is doing well will no acute changes overnight. Her eye appears less swollen. She continued to have some tenderness when she blinks. Otherwise patient denies chest pain, ob, dizziness, headache. Patient wants to go home. Objective Last 24 Hour Vital Signs Date Time Temp Pulse Resp B/P (MAP) Pulse Ox O2 Delivery O2 Flow Rate FiO2 12/27/17 08:23 108/70 12/27/17 08:22 62 108/70 12/27/17 08:00 98.4 62 18 108/70 (83) 97 12/27/17 04:00 98.1 58 16 132/67 (88) 97 12/27/17 03:34 59 12/27/17 00:00 97.5 64 16 136/76 (96) 97 12/26/17 23:21 60 12/26/17 21:43 66 142/69 12/26/17 21:00 Room Air 12/26/17 20:00 97.5 66 19 142/69 (93) 97 12/26/17 19:58 68 12/26/17 16:00 Room Air 12/26/17 16:00 97.7 66 19 139/86 (103) 97 12/26/17 15:52 59 12/26/17 13:00 Room Air 12/26/17 12:00 Room Air 12/26/17 12:00 97.7 63 20 122/61 (81) 99 12/26/17 11:32 65 Intake and Output 12/26/17 12/27/17 19:00 07:00 # Voids 2 Height (Feet): 5 Height (Inches): 4.00 Weight (Pounds): 93 General Appearance: WD/WN, no apparent distress, alert, lethargic EENT: pharynx normal, other - right eye sluggish, less swollen than yesterday, continues to have echymosis owever resolving Neck: non-tender, normal alignment, supple, normal inspection Cardiovascular: normal peripheral pulses, normal rate, regular rhythm, regularly irregular, no gallop/murmur, no JVD Respiratory/Chest: chest wall non-tender, lungs clear, normal breath sounds, no respiratory distress, no accessory muscle use Abdomen: normal bowel sounds, non tender, soft, no organomegaly, no mass Extremities: normal range of motion, non-tender, normal inspection Edema: no edema noted Arm (L), no edema noted Arm (R), no edema noted Leg (L), no edema noted Leg (R), no edema noted Pedal (L), no edema noted Pedal (R), no edema noted Generalized Neurologic: oriented x 3, responsive, normal mood/affect Skin: normal pigmentation, warm/dry Addie Medellin DO Dec 27, 2017 09:55
[2017-12-27] MEDS ORDERED: MIRTAZAPINE15 M3 ORAL (10:18)
[2017-12-27] MEDS ORDERED: LISINOPRIL5 MG ORAL (10:18)
[2017-12-27] MEDS ORDERED: LEXAPRO10 MG ORAL (10:18)
[2017-12-27] MEDS ORDERED: COREG3.125 MG ORAL (10:18)
--- NOTE | 2017-12-27 10:27 | Discharge Instructions ---
Discharge Instructions Discharge Instructions Follow up with: ophthomology Call MD/Return to Hospital if: severe pain or decreased vision in right eye, or passing out or chest pain Additional Diet Information: regular diet Resume Normal Activity?: Yes Activity: resume normal activities, as tolerated Special Instructions It is very important that you follow up with your Pipe Tester as we discussed, for the following diagnose: 1. dislocated intraocular lens, right eye 2. Macular atrophy right eye 3. Perio-ocular contusion, right eye For Congestive Heart Failure Reminder Report to your physician any weight gain of 5 pounds or more in one week. Addie Medellin DO Dec 27, 2017 10:27
--- NOTE | 2017-12-27 10:41 | Discharge Summary ---
Discharge Summary Hospital Course Date of Admission Dec 25, 2017 at 07:48 Date of Discharge Admitting Diagnosis WEAKNESS, HEAD TRAUMA HPI Conrad Verde is a 77 year old female who was admitted on Dec 25, 2017 at 07:48 for Weakness, Head Trauma Consultations Cardiology: Dr. Ramsey Psyche: Dr. Peng Ophthalmology: Dr. Fregoso Neurology: Dr. Sánchez Hematology: Dr. Savage Hospital Course 77 yo F with PMH CVA and residual weakness and right sided facial droop, HTN, DLD, was admitted for suspected mechanical fall, elevated troponins and right eye hematoma. Patient was initially admittted under tele for ACS workup in the setting of elevated troponin of 0.[address] changes on EKG. Patient was evaluated by cardiology and troponin downtrended to 0.04. Patient echo showed EF < 40% see results below. Patient denies chest pain throughout her entire stay and prior to the fall. Patient was also found to be severely depressed and had lost 18 pounds in the last year. Patient was evaluated by Psychology and place on lexapro and mirtazapine. Patient was also evaluated by nutrition. Patient was evaluated by neurology for possible neurologic causes of her fall. B12 level 971, folate 34.4, TSH 1.497, RPR non reactive, HIV 1 and 2 negative, Hepatitis panel negative. CT head initially revealed no acute changes and was amended after review of MRI that showed possible retrobulbar hemorrhage. (see full report below). Carotid US showed no significant stenosis. In regards to reading of "possible" retrobulbar hemorrhage, patient transfer was requested at both [facility] and [facility] which were not accepting transfer for emergent evaluation. Patient was eventually seen by Dr. Fregoso who had a difficult time distinguishing new changes versus old, but did note patient has a dislocated lense with history of macular degeneration. He deemed patient did not need emergent surgery and it was ok for monitoring. On day of discharge patient's orbital edema has improved and she is stable for discharge with Ophthalmology follow-up outpatient. Medications on discharge : Coreg 3.125 mg PO BID Lisinopril 2.5 mg Po Daily Lexapro 10 mg PO daily Remeron 7.5 mg Po nightly Lipitor 40 mg Po nightly Megace 40 mg Po BID Discharge Condition Upon Discharge: stable Discharge Disposition Patient was discharged to home with Discharge Diagnoses: (1) CHF (congestive heart failure) (2) CVA (cerebral vascular accident) (3) Malnutrition (4) Fall (5) Head trauma (6) Hematoma (7) Major depressive disorder (8) Dislocated intraocular lens (9) H/O: hysterectomy Discharge Instructions Discharge Instructions Follow up with: ophthomology Call MD/Return to Hospital if: severe pain or decreased vision in right eye, or passing out or chest pain Additional Diet Information: regular diet Activity: resume normal activities, as tolerated Addie Medellin DO Dec 27, 2017 10:41
--- NOTE | 2017-12-27 12:22 | General Progress Note ---
Assessment/Plan Problem List: (1) Major depressive disorder ICD Codes: F32.9 - Major depressive disorder, single episode, unspecified SNOMED: 157796787 Qualifiers: Qualified Codes: F32.1 - Major depressive disorder, single episode, moderate (2) Anxiety ICD Codes: F41.9 - Anxiety disorder, unspecified SNOMED: 47374472 Status: stable Assessment/Plan Remeron 7.5 mg qhs Lexapro 10mg qam provided ro/st d/w primary the pt s eye is stable and will f/u out eradicator. Subjective Date patient seen: Dec 27, 2017 Neurologic/Psychiatric: Reports: anxiety, depressed, emotional problems Allergies: Coded Allergies: No Known Allergies (Unverified , 12/25/17) Subjective the pt is doing better slept well. the pt has no side effects. Objective Last 24 Hour Vital Signs Date Time Temp Pulse Resp B/P (MAP) Pulse Ox O2 Delivery O2 Flow Rate FiO2 12/27/17 09:00 Room Air 12/27/17 08:23 108/70 12/27/17 08:22 62 108/70 12/27/17 08:00 98.4 62 18 108/70 (83) 97 12/27/17 08:00 71 12/27/17 04:00 98.1 58 16 132/67 (88) 97 12/27/17 03:34 59 12/27/17 00:00 97.5 64 16 136/76 (96) 97 12/26/17 23:21 60 12/26/17 21:43 66 142/69 12/26/17 21:00 Room Air 12/26/17 20:00 97.5 66 19 142/69 (93) 97 12/26/17 19:58 68 12/26/17 16:00 Room Air 12/26/17 16:00 97.7 66 19 139/86 (103) 97 12/26/17 15:52 59 12/26/17 13:00 Room Air Intake and Output 12/26/17 12/27/17 19:00 07:00 # Voids 2 Height (Feet): 5 Height (Inches): 4.00 Weight (Pounds): 93 General Appearance: no apparent distress, alert Neurologic: oriented x 3, responsive, depressed affect Mariana Peng MD Dec 27, 2017 12:22
--- NOTE | 2017-12-27 12:32 | Diagnostic Imaging Report ---
APPROVED REPORT CPT Code: 09677 Vascular Symptoms Comments: CVA. Doppler Spectral Velocity Analysis RightLeft RIGHT SIDE: CCA/ECA - Imaging reveals no significant plaque in the common carotid and external carotid arteries. ICA - Imaging reveals irregular plaque in the internal carotid artery. The Doppler signal indicates the degree of stenosis is minimal (5%) in the internal carotid artery. VERTEBRAL- The vertebral artery is patent, without evidence of stenosis or steal. LEFT SIDE: CCA/ECA - Imaging reveals no significant plaque in the common carotid and external carotid arteries. ICA - Imaging reveals irregular plaque in the internal carotid artery. The Doppler signal indicates the degree of stenosis is minimal (5%) in the internal carotid artery. VERTEBRAL- The vertebral artery is patent, without evidence of stenosis or steal.
--- NOTE | 2017-12-27 12:32 | Diagnostic Imaging Report ---
APPROVED REPORT CPT Code: 47741 Present Symptoms Comments: BILATERAL LEGS PAIN. BILATERAL: Imaging reveals a patent deep venous system bilaterally. There is no evidence of thrombus within the femoral, popliteal or tibial segments. The greater saphenous veins are also within normal limits. Doppler indicates normal spontaneous flow within these segments.
== END 2017-12-27 11:58 | disposition home or self-care (01) | DRG 281 ==
LOC: EDBD 06:39 → EMR 07:10 → 2W 07:48 → OBSVTOIN 07:48 → INTOOBSV 07:48 → EDBEDREQSVC 07:58 → EDBEDREQ 08:16 → 2W 12:20 → 2E 12-26 10:21
DX: I21.4 Non-ST elevation (NSTEMI) myocardial infarction (principal); E44.0 Moderate protein-calorie malnutrition; Z68.1 Body mass index [BMI] 19.9 or less, adult; T85.22XA Displacement of intraocular lens, initial encounter; S09.90XA Unspecified injury of head, initial encounter; S01.111A Laceration without foreign body of right eyelid and periocular area, initial encounter; S00.11XA Contusion of right eyelid and periocular area, initial encounter; W19.XXXA Unspecified fall, initial encounter; Y92.009 Unspecified place in unspecified non-institutional (private) residence as the place of occurrence of the external cause; Z86.73 Personal history of transient ischemic attack (TIA), and cerebral infarction without residual deficits; Z90.710 Acquired absence of both cervix and uterus; I11.0 Hypertensive heart disease with heart failure; I50.9 Heart failure, unspecified; F32.9 Major depressive disorder, single episode, unspecified; E78.5 Hyperlipidemia, unspecified; F41.9 Anxiety disorder, unspecified; R41.89 Other symptoms and signs involving cognitive functions and awareness
CPT/HCPCS: 36415; 70450; 70551; 76700; 80048; 80053; 81001; 82306; 82378; 82607; 82746; 83036; 83735; 84443; 84484; 85025; 85610; 85651; 85730; 86592; 86703; 86705; 86709; 86803; 87340; 90471; 90715; 93005; 93306; 93880; 93970; 96360; 99285; J8499